=== PATIENT | male | born 1945 | race Caucasian/White ===

== ENCOUNTER 2018-05-02 16:53 | Inpatient (IN) ==
[2018-05-02] MEDS ORDERED: SODIUM CHLORIDE 0.9% 250 ML IV PRN (18:04)
[2018-05-02] MEDS ORDERED: ACETAMINOPHEN 325 MG TAB PO PRN (18:09)
[2018-05-02] MEDS ORDERED: GLUCAGON FOR INJ 1 MG VIAL SQ PRN (18:43)
[2018-05-02] MEDS ORDERED: GLUCOSE 10 TABS/TUBE PO PRN (18:43)
[2018-05-02] MEDS ORDERED: DEXTROSE 50% 50 ML SYRINGE IV PRN (18:43)
[2018-05-02] MEDS ORDERED: CARBOHYDRATES FOR HYPOGLYCEMIA PO PRN (18:43)
[2018-05-02] MEDS ORDERED: GLUCOSE 40% GEL 15 GM TUBE PO PRN (18:43)
[2018-05-02 19:09] LABS: Hematocrit (blood only) 21.6 % (42-52); Mean Corpuscular Hgb Conc 32.4 g/dL (32-36); Mean Corpuscular Volume 91.1 fL (80-100); Mean Platelet Volume 9.9 fL (7.4-10.4); Platelet Count 234 K/uL (130-400); RDW Coefficient of Variation 16.1 % (11.5-14.5); RDW Standard Deviation 53.8 fL (36.4-46.3); Red Blood Count 2.37 M/uL (4.7-6.1); White Blood Count 10.77 K/uL (4.8-10.8)
[2018-05-02 19:13] LABS: Basophils # (auto) 0.03 K/uL (0-0.2); Basophils % (auto) 0.3 %; Eosinophils # (auto) 0.14 K/uL (0-0.5); Eosinophils % (auto) 1.3 %; Immature Granulocytes # (auto) 0.01 K/uL (0.00-0.02); Immature Granulocytes % (auto) 0.1 %; Lymphocytes # (auto) 1.75 K/uL (1.2-3.4); Lymphocytes % (auto) 16.2 %; Monocytes # (auto) 0.86 K/uL (0.11-0.59); Neutrophils # (auto) 7.98 K/uL (1.4-6.5); Neutrophils % (auto) 74.1 %; RBC Morphology Unremarkable
[2018-05-02 19:18] LABS: Appearance Urine Turbid (Clear); Bacteria Urine Automated 4+ (Negative); Bilirubin Urine Negative (Negative); Color Urine Yellow; Epithelial Cell Urine Auto 20-30 /lpf (0-5); Glucose Urine UA Negative (Negative); Ketones Urine Negative (Negative); Leukocyte Esterase Urine 3+ (Negative); Nitrite Urine Positive (Negative); Protein Urine 2+ (Negative); Specific Gravity Urine 1.014 (1.000-1.030); Urobilinogen Urine Negative (Negative); WBC Urine Automated >30 /hpf (0-5)
[2018-05-02 19:21] LABS: Alanine Aminotransferase 14 U/L (12-78); Albumin Level 2.9 gm/dl (3.4-5.0); Alkaline Phosphatase 64 U/L (45-117); Aspartate Aminotransferase 9 U/L (15-37); BUN Creatinine Ratio 15.3 (10-20); Bilirubin Direct < 0.1 mg/dl (0-0.2); Bilirubin,Total 0.3 mg/dl (0.2-1); Blood Urea Nitrogen 70 mg/dl (7-18); Calcium 8.2 mg/dl (8.5-10.1); Carbon Dioxide 16 mmol/L (21-32); Chloride 112 mmol/L (98-107); Est GFR (African American) 13.6; Est GFR (Non-African American) 11.7; Ferritin 282.5 ng/ml (8-388); Glucose 163 mg/dl (70-99); Iron 23 mcg/dl (35-175); Magnesium 1.5 mg/dl (1.8-2.4); Phosphorus 4.8 mg/dl (2.5-4.9); Potassium 4.5 mmol/L (3.5-5.1); Sodium 136 mmol/L (136-145); Total Protein 7.2 gm/dl (6.4-8.2); Transferrin 166 mg/dl (200-360); Transferrin Percent Saturation 10 % (20-50)
[2018-05-02] MEDS ORDERED: PATIENT'S HEIGHT AND/OR WEIGHT NEEDED SCH (19:30)
[2018-05-02] MEDS ORDERED: PATIENT'S ALLERGY INFO NEEDS ENTERED SCH (19:30)
--- NOTE | 2018-05-02 19:34 | Ultrasound Report ---
US renal/blad retro comp HISTORY: Pain. Renal insufficiency. BEBE on CKD COMPARISON: None. FINDINGS: Right kidney: Maximum dimension 10.5 cm. No evidence for hydronephrosis. Normal corticomedullary diff erentiation and cortical thickness. Left kidney: Maximum dimension 11.2 cm. No evidence for hydronephrosis. 3 cm upper pole cyst. Normal corticomedullary differentiation and cortical thickness. Bladder: No bladder wall thickening. The bilateral ureteral jets were identified. IMPRESSION: 3 cm upper pole left renal cyst. Otherwise normal study. The above report was generated using voice recognition software. It may contain grammatical, syntax or spelling errors. Electronically signed by: Jose De Jesus Traylor M.D. 05/02/2018 7:32 PM
[2018-05-02 19:36] LABS: Creatinine Urine Random 61.4 mg/dl; Total Protein Urine Random 191.3 mg/dl (0-11.9)
[2018-05-02 21:15] LABS: INR 1.1 (0.9-1.1); Partial Thromboplastin Ratio 1.1; Partial Thromboplastin Time 27.5 Seconds (21.0-31.0)
--- NOTE | 2018-05-02 21:28 | History & Physical Report ---
Date of Service May 02, 2018 Assessment & Plan (1) CKD (chronic kidney disease): 72yo male with HTN, DM presenting with worsening renal function and anemia. 1. CKD - patient with advanced CKD stage IIIB/4 most likely secondary to underlying DM and HTN. He had an initial evaluation by Nephrology today and was found to have acute worsening of his BUN and Cr. Patient overall feels well with no acute complaints. Ddx to include pre-renal vs intrinsic renal disease vs progression of disease vs obstructive. K=4.5, no EKG changes. HCO3= 16 -Admit to medical floor -Obtain CBC, BMP, UA with urine protein:creatinine -Urine eosinophils -Obtain renal ultrasound -Nephrology consultation - appreciate assistance with this case -Avoid nephrotoxic medications -Renal dosing where appropriate -Start NaHCO3 650mg po TID -Daily BMP 2. Anemia - normochromic, normocytic anemia. Hg=7. Patient denies acute blood loss, bruising or bleeding. ?GI losses vs AOCD in setting of renal dysfunction -Check iron studies -Check LFTs -Check peripheral smear -Check FOBT -Type and Cross 2u PRBCs -Transfuse for Hg < 8 or active bleed -Patient will need GI workup in the future 3. DM - patient reports diet controlled DM -Insulin 8u BID -Sliding scale, 30:9 -Check AIC 4. HTN - patient was previously on Coreg 12.5mg po BID but reports that he hasn 't been taking it. Blood pressure elevated at 167/78 -Continue to monitor blood pressure. If it remains elevated will initiate antihypertensives 5. Seizures - remote history of seizures, none recently 6. F/E/N - Transfuse PRBCs as above. Monitor electrolytes and replete as needed. Start PO magnesium. DM/Renal diet as tolerated 7. Ppx - Heparin for DVT ppx 8. Code - DNR per discussion with patient 9. Dispo - Admit History of Present Illness Chief Complaint: BEBE on CKD Anemia Primary Care Provider: NO PCP Mr. Delaney is a pleasant 72yo male who was sent for direct admission by Nephrology for laboratory abnormalities. 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 He was evaluated in the Nephrology clinic today. His baseline Cr has been 2.2 - 2.5 and was found to be 5 today. Baseline Hg of 9.9 which was found to be 5.8 today. The patient was ordered 2u PRBCs by his PCP, however, patient did not complete transfusion. He was sent for direct admission to [facility]. Overall, patient with no complaints. He denies fevers, chills, nausea, vomiing , diarrhea or constipation. He denies CP, palpitations, dizziness or syncope. Denies melena, hematochezia or hematuria. He states that his BMs and UOP are normal. He has had progressive BELCHER over thee past 2 months. Allergies Allergy/AdvReac Type Severity Reaction Status Date / Time No Known Allergies Allergy Unverified 05/02/18 21:23 Home Medications Home Medications Medication Instructions Recorded Confirmed Type Phenytoin Sodium (Dilantin Unknown BID #0 10/18/08 History Dose) Sulfa/Trimethoprim (Bactrim Ds 1 tab PO BID 14 Days #0 10/18/08 Rx 800MG/160MG) Tamsulosin Hcl (Flomax *) 0.4 mg PO DAILY 14 Days #0 10/18/08 Rx Past Med/Surg History Medical History CHF (congestive heart failure) CKD (chronic kidney disease) Diabetes Hypertension Seizures Surgical History S/P cataract extraction Family History Other Diabetes Stroke Social History Current Living Situation: Family Other Information That Helps Us Care for You: No Feels Safe at Home: Yes Safety Concerns: Feels Safe At This Time Smoking Status: Former smoker Do You Dip or Chew Tobacco: No Second Hand Exposure: No Tobacco Cessation Education Requested by Patient: No Hx Alcohol Use: No Hx Substance Use: No Beliefs That Will Affect Care: None Preferred Language: Zambian Communication Ability: Effective Configuration Management Specialist Required: No Review of Systems All systems reviewed & are unremarkable except as noted in HPI & below Physical Exam 2 Vital Signs (Past 24 Hours): Last Vital Signs Temp 37.3 C 05/02/18 20:40 Pulse 90 05/02/18 20:40 Resp 20 05/02/18 20:40 BP 137/77 05/02/18 20:40 Pulse Ox 99 05/02/18 20:40 Physical Exam: General: patient resting comfortably, NAD, non-toxic in appearance, AA&O x 4 Skin: warm, dry, intact, no rashes or lesions HEENT: NC/AT, PERRL, EOMI, anicteric sclera, conjunctiva without injection, external ear normal to inspection and nontender, nares patent, moist mucus membranes, dentition intact, no oropharyngeal lesions, neck supple, trachea midline, no LAD, no thyromegaly, no JVD Heart: +S1/S2, regular, no m/r/g Lungs: equal air entry bilaterally, no rales/rhonchi/wheezes Abd: +BS, soft, NT/ND, no masses/organomegaly/ascites Ext: warm, 2+ pulses in UE/LE bilaterally, no clubbing/cyanosis or edema Neuro: nonfocal, patient AA&O x 4, speech intact, no facial droop, moving all extremities on command with equal strength 5/5 Results & Data Laboratory Results Lab Results 05/02/18 05/02/18 05/02/18 Range/Units 18:24 18:24 18:24 WBC 10.77 (4.8-10.8) K/uL RBC 2.37 L (4.7-6.1) M/uL Hgb 7.0 L (14.0-18.0) g/dL Hct 21.6 L (42-52) % MCV 91.1 (80-100) fL MCH 29.5 (25-34) pg MCHC 32.4 (32-36) g/dL RDW Std Deviation 53.8 H (36.4-46.3) fL RDW Coeff of Bart 16.1 H (11.5-14.5) % Plt Count 234 (130-400) K/uL MPV 9.9 (7.4-10.4) fL Immature Gran % (Auto) 0.1 % Neut % (Auto) 74.1 % Lymph % (Auto) 16.2 % [place] % (Auto) 8.0 % Eos % (Auto) 1.3 % Baso % (Auto) 0.3 % Immature Gran # (Auto) 0.01 (0.00-0.02) K/uL Neut # (Auto) 7.98 H (1.4-6.5) K/uL Lymph # (Auto) 1.75 (1.2-3.4) K/uL [place] # (Auto) 0.86 H (0.11-0.59) K/uL Eos # (Auto) 0.14 (0-0.5) K/uL Baso # (Auto) 0.03 (0-0.2) K/uL RBC Morphology Unremarkable PT (9.0-12.0) Seconds INR (0.9-1.1) APTT (21.0-31.0) Seconds PTT Ratio Sodium 136 (136-145) mmol/L Potassium 4.5 (3.5-5.1) mmol/L Chloride 112 H (98-107) mmol/L Carbon Dioxide 16 L (21-32) mmol/L Anion Gap 8.0 (3-11) BUN 70 H (7-18) mg/dl Creatinine 4.68 H* (0.6-1.4) mg/dl Est Cr Clr Drug Dosing Not Reportable Est GFR ( Amer) 13.6 Est GFR (Non-Af Amer) 11.7 BUN/Creatinine Ratio 15.3 (10-20) Glucose 163 H (70-99) mg/dl POC Glucose (70-99) Calcium 8.2 L (8.5-10.1) mg/dl Phosphorus 4.8 (2.5-4.9) mg/dl Magnesium 1.5 L (1.8-2.4) mg/dl Iron 23 L (35-175) mcg/dl TIBC 209 L (250-450) mcg/dl Transferrin 166 L (200-360) mg/dl Transferrin % Sat 10 L (20-50) % Ferritin 282.5 (8-388) ng/ml Total Bilirubin 0.3 (0.2-1) mg/dl Direct Bilirubin < 0.1 (0-0.2) mg/dl AST 9 L (15-37) U/L ALT 14 (12-78) U/L Alkaline Phosphatase 64 (45-117) U/L Total Protein 7.2 (6.4-8.2) gm/dl Albumin 2.9 L (3.4-5.0) gm/dl Urine Color Urine Appearance (Clear) Urine pH (4.5-7.5) Ur Specific [place] (1.000-1.030) Urine Protein (Negative) Urine Glucose (UA) (Negative) Urine Ketones (Negative) Urine Blood (Negative) Urine Nitrite (Negative) Urine Bilirubin (Negative) Urine Urobilinogen (Negative) Ur Leukocyte Esterase (Negative) Urine WBC (Auto) (0-5) /hpf Urine RBC (Auto) (0-4) /hpf U Hyaline Cast (Auto) (0-5) /lpf U Epithel Cells (Auto) (0-5) /lpf Urine Bacteria (Auto) (Negative) Ur Random Creatinine mg/dl U Random Total Protein (0-11.9) mg/dl Protein/Creatinin Ratio (0-0.2) Blood Type A Positive Blood Type Recheck Antibody Screen NEGATIVE Crossmatch See Detail 05/02/18 05/02/18 05/02/18 Range/Units 18:24 18:48 18:48 WBC (4.8-10.8) K/uL RBC (4.7-6.1) M/uL Hgb (14.0-18.0) g/dL Hct (42-52) % MCV (80-100) fL MCH (25-34) pg MCHC (32-36) g/dL RDW Std Deviation (36.4-46.3) fL RDW Coeff of Bart (11.5-14.5) % Plt Count (130-400) K/uL MPV (7.4-10.4) fL Immature Gran % (Auto) % Neut % (Auto) % Lymph % (Auto) % [place] % (Auto) % Eos % (Auto) % Baso % (Auto) % Immature Gran # (Auto) (0.00-0.02) K/uL Neut # (Auto) (1.4-6.5) K/uL Lymph # (Auto) (1.2-3.4) K/uL [place] # (Auto) (0.11-0.59) K/uL Eos # (Auto) (0-0.5) K/uL Baso # (Auto) (0-0.2) K/uL RBC Morphology PT 11.0 (9.0-12.0) Seconds INR 1.1 (0.9-1.1) APTT 27.5 (21.0-31.0) Seconds PTT Ratio 1.1 Sodium (136-145) mmol/L Potassium (3.5-5.1) mmol/L Chloride (98-107) mmol/L Carbon Dioxide (21-32) mmol/L Anion Gap (3-11) BUN (7-18) mg/dl Creatinine (0.6-1.4) mg/dl Est Cr Clr Drug Dosing Est GFR ( Amer) Est GFR (Non-Af Amer) BUN/Creatinine Ratio (10-20) Glucose (70-99) mg/dl POC Glucose (70-99) Calcium (8.5-10.1) mg/dl Phosphorus (2.5-4.9) mg/dl Magnesium (1.8-2.4) mg/dl Iron (35-175) mcg/dl TIBC (250-450) mcg/dl Transferrin (200-360) mg/dl Transferrin % Sat (20-50) % Ferritin (8-388) ng/ml Total Bilirubin (0.2-1) mg/dl Direct Bilirubin (0-0.2) mg/dl AST (15-37) U/L ALT (12-78) U/L Alkaline Phosphatase (45-117) U/L Total Protein (6.4-8.2) gm/dl Albumin (3.4-5.0) gm/dl Urine Color Yellow Urine Appearance Turbid H (Clear) Urine pH 5.0 (4.5-7.5) Ur Specific [place] 1.014 (1.000-1.030) Urine Protein 2+ H (Negative) Urine Glucose (UA) Negative (Negative) Urine Ketones Negative (Negative) Urine Blood 2+ H (Negative) Urine Nitrite Positive H (Negative) Urine Bilirubin Negative (Negative) Urine Urobilinogen Negative (Negative) Ur Leukocyte Esterase 3+ H (Negative) Urine WBC (Auto) >30 H (0-5) /hpf Urine RBC (Auto) 10-30 H (0-4) /hpf U Hyaline Cast (Auto) 1-5 (0-5) /lpf U Epithel Cells (Auto) 20-30 H (0-5) /lpf Urine Bacteria (Auto) 4+ H (Negative) Ur Random Creatinine 61.4 mg/dl U Random Total Protein 191.3 H (0-11.9) mg/dl Protein/Creatinin Ratio 3.1 H (0-0.2) Blood Type Blood Type Recheck Antibody Screen Crossmatch 05/02/18 05/02/18 Range/Units 19:40 20:20 WBC (4.8-10.8) K/uL RBC (4.7-6.1) M/uL Hgb (14.0-18.0) g/dL Hct (42-52) % MCV (80-100) fL MCH (25-34) pg MCHC (32-36) g/dL RDW Std Deviation (36.4-46.3) fL RDW Coeff of Bart (11.5-14.5) % Plt Count (130-400) K/uL MPV (7.4-10.4) fL Immature Gran % (Auto) % Neut % (Auto) % Lymph % (Auto) % [place] % (Auto) % Eos % (Auto) % Baso % (Auto) % Immature Gran # (Auto) (0.00-0.02) K/uL Neut # (Auto) (1.4-6.5) K/uL Lymph # (Auto) (1.2-3.4) K/uL [place] # (Auto) (0.11-0.59) K/uL Eos # (Auto) (0-0.5) K/uL Baso # (Auto) (0-0.2) K/uL RBC Morphology PT (9.0-12.0) Seconds INR (0.9-1.1) APTT (21.0-31.0) Seconds PTT Ratio Sodium (136-145) mmol/L Potassium (3.5-5.1) mmol/L Chloride (98-107) mmol/L Carbon Dioxide (21-32) mmol/L Anion Gap (3-11) BUN (7-18) mg/dl Creatinine (0.6-1.4) mg/dl Est Cr Clr Drug Dosing Est GFR ( Amer) Est GFR (Non-Af Amer) BUN/Creatinine Ratio (10-20) Glucose (70-99) mg/dl POC Glucose 218 H (70-99) Calcium (8.5-10.1) mg/dl Phosphorus (2.5-4.9) mg/dl Magnesium (1.8-2.4) mg/dl Iron (35-175) mcg/dl TIBC (250-450) mcg/dl Transferrin (200-360) mg/dl Transferrin % Sat (20-50) % Ferritin (8-388) ng/ml Total Bilirubin (0.2-1) mg/dl Direct Bilirubin (0-0.2) mg/dl AST (15-37) U/L ALT (12-78) U/L Alkaline Phosphatase (45-117) U/L Total Protein (6.4-8.2) gm/dl Albumin (3.4-5.0) gm/dl Urine Color Urine Appearance (Clear) Urine pH (4.5-7.5) Ur Specific [place] (1.000-1.030) Urine Protein (Negative) Urine Glucose (UA) (Negative) Urine Ketones (Negative) Urine Blood (Negative) Urine Nitrite (Negative) Urine Bilirubin (Negative) Urine Urobilinogen (Negative) Ur Leukocyte Esterase (Negative) Urine WBC (Auto) (0-5) /hpf Urine RBC (Auto) (0-4) /hpf U Hyaline Cast (Auto) (0-5) /lpf U Epithel Cells (Auto) (0-5) /lpf Urine Bacteria (Auto) (Negative) Ur Random Creatinine mg/dl U Random Total Protein (0-11.9) mg/dl Protein/Creatinin Ratio (0-0.2) Blood Type Blood Type Recheck A Positive Antibody Screen Crossmatch Diagnostic Findings US renal/blad retro comp HISTORY: Pain. Renal insufficiency. BEBE on CKD COMPARISON: None. FINDINGS: Right kidney: Maximum dimension 10.5 cm. No evidence for hydronephrosis. Normal corticomedullary differentiation and cortical thickness. Left kidney: Maximum dimension 11.2 cm. No evidence for hydronephrosis. 3 cm upper pole cyst. Normal corticomedullary differentiation and cortical thickness. Bladder: No bladder wall thickening. The bilateral ureteral jets were identified. IMPRESSION: 3 cm upper pole left renal cyst. Otherwise normal study. The above report was generated using voice recognition software. It may contain grammatical, syntax or spelling errors. Electronically signed by: Jose De Jesus Traylor M.D. 05/02/2018 7:32 PM Dictated: 05/02/181931 Transcribed: 05/02/181931 ECG Additional Comments: NSR at 95bpm, LAFB, [id number], no ischemia Code Status & VTE Plan Code Status DNR Critical Care Time Critical Care Time: No
[2018-05-02] MEDS: INSULIN GLARGINE SOLOSTAR 100 UNITS/ML 3 ML PEN SC SCH (22:17)
[2018-05-02] MEDS: HEPARIN SOD 5,000 UNIT/0.5 ML VIAL SQ SCH (22:17)
[2018-05-03 06:06] LABS: Basophils # (auto) 0.02 K/uL (0-0.2); Basophils % (auto) 0.2 %; Eosinophils # (auto) 0.13 K/uL (0-0.5); Eosinophils % (auto) 1.4 %; Hematocrit (blood only) 22.1 % (42-52); Hemoglobin 7.1 g/dL (14.0-18.0); Immature Granulocytes # (auto) 0.03 K/uL (0.00-0.02); Immature Granulocytes % (auto) 0.3 %; Lymphocytes # (auto) 2.15 K/uL (1.2-3.4); Lymphocytes % (auto) 23.5 %; Mean Corpuscular Hgb Conc 32.1 g/dL (32-36); Mean Corpuscular Volume 90.9 fL (80-100); Mean Platelet Volume 9.9 fL (7.4-10.4); Monocytes # (auto) 0.86 K/uL (0.11-0.59); Monocytes % (auto) 9.4 %; Neutrophils # (auto) 5.96 K/uL (1.4-6.5); Neutrophils % (auto) 65.2 %; Platelet Count 217 K/uL (130-400); RDW Coefficient of Variation 15.7 % (11.5-14.5); RDW Standard Deviation 52.8 fL (36.4-46.3); Red Blood Count 2.43 M/uL (4.7-6.1); White Blood Count 9.15 K/uL (4.8-10.8)
[2018-05-03] MEDS: HEPARIN SOD 5,000 UNIT/0.5 ML VIAL SQ SCH ×2 (06:16→14:24)
[2018-05-03 06:31] LABS: Tear Drop Cells 1+
[2018-05-03 06:52] LABS: BUN Creatinine Ratio 15.2 (10-20); Calcium 8.1 mg/dl (8.5-10.1); Creatinine Clr Calc Pharmacy 20.1 ml/min; Est GFR (African American) 13.2; Est GFR (Non-African American) 11.4
[2018-05-03 07:07] LABS: Estimated Average Glucose 177 mg/dl
[2018-05-03] MEDS ORDERED: SODIUM BICARBONATE 650 MG TAB PO SCH (09:00)
[2018-05-03] MEDS: CARVEDILOL 12.5 MG TAB PO SCH ×2 (09:53→21:25)
[2018-05-03] MEDS: MAGNESIUM OXIDE 400 MG TAB PO SCH ×2 (09:53→21:25)
[2018-05-03] MEDS: INSULIN GLARGINE SOLOSTAR 100 UNITS/ML 3 ML PEN SC SCH ×2 (09:54→21:27)
[2018-05-03] MEDS: INSULIN ASPART 100 UNITS/ML 3 ML PEN SC SCH ×4 (09:55→21:28)
--- NOTE | 2018-05-03 10:52 | Nephrology Consultation ---
Date of Consultation May 03, 2018 Assessment & Plan (1) CKD (chronic kidney disease): -- Start NaHCO3 therapy to correct metabolic acidosis. Recommend reducing dose to NaHCO3 650 mg po BID -- Renal US report reviewed today: No obstruction. Normal sized kidneys. One simple cyst reported -- Urinalysis reveals microscopic hematuria and high grade proteinuria. Will order repeat urine microscopy as patient had epithelial cells and bacteriuria. Proteinuria is likely related to underlying DM and obesity. Will order serum free light chains w/ next lab draw -- Indications/benefits/risks & alternatives to dialysis (including hospice) discussed in detail w/ the patient and his family this morning. Mr. Delaney indicated that he needs time to consider dialysis. He wishes to discuss this with his family. He may not pursue dialysis due to his [facility] jodie. -- If discharge is anticipated please have patient follow up w/ Dr Francis within the next 7 days (2) Anemia: -- Recommend transfusion to maintain Hgb > 8.0 -- Patient has iron deficiency. Recommend IV Venofer 200 mg daily x 5 days -- Recommend FOBT if not already completed (3) H/O CHF: -- Recommend Echocardiogram to assess LVEF and PA pressure History of Present Illness Reason for Consultation: Evaluation of progressive CKD Attending Physician: Chao Medrano History of Present Illness Mr. Delaney is a 72 year old [facility] male who is seen at the request of Dr. Medrano for evaluation of progressive CKD. Medical records in the EMR were reviewed today and are summarized as follows: Mr. Delaney has had relatively few medical evaluations due to his [facility] jodie. He does have a known h/o CHF, HTN, diet controlled AODM and CKD w/ baseline creatinine ~ 2.5 (2017). His chronic medical regimen has consisted of Carvedilol 12.5 mg BID and Furosemide 40 mg daily. Mr. Delaney was referred to Nephrology yesterday for evaluation. Laboratory studies revealed creatinine 4.6, bicarbonate 14 and Hgb 5.8. Patient was admitted directly to the hospital for blood transfusion and further Nephrology evaluation. Currently Mr. Delaney states that he feels well. He denies fever, dyspnea, angina or uremic symptoms. He was transfused one unit PRBC yesterday and is anxious to return home. Allergies Allergy/AdvReac Type Severity Reaction Status Date / Time No Known Allergies Allergy Unverified 05/02/18 21:23 Home Medications Home Medications Medication Instructions Recorded Confirmed Type Phenytoin Sodium (Dilantin Unknown BID #0 10/18/08 History Dose) Sulfa/Trimethoprim (Bactrim Ds 1 tab PO BID 14 Days #0 10/18/08 Rx 800MG/160MG) Tamsulosin Hcl (Flomax *) 0.4 mg PO DAILY 14 Days #0 10/18/08 Rx Patient History Medical History CHF (congestive heart failure) CKD (chronic kidney disease) Diabetes Hypertension Seizures Surgical History S/P cataract extraction Family History Other Diabetes Stroke Social History Current Living Situation: Family Other Information That Helps Us Care for You: No Feels Safe at Home: Yes Safety Concerns: Feels Safe At This Time Smoking Status: Former smoker Do You Dip or Chew Tobacco: No Second Hand Exposure: No Tobacco Cessation Education Requested by Patient: No Hx Alcohol Use: No Hx Substance Use: No Beliefs That Will Affect Care: None Preferred Language: Norwegian Communication Ability: Effective Color Repairer Required: No Review of Systems Constitutional: no fever Respiratory: no dyspnea Cardiovascular: no chest pain Gastrointestinal: no abdominal pain Physical Exam 2 Vital Signs (Past 24 Hours): Last Vital Signs Temp 36.6 C 05/03/18 10:30 Pulse 81 05/03/18 10:30 Resp 18 05/03/18 10:30 BP 138/73 05/03/18 10:30 Pulse Ox 99 05/03/18 10:30 Constitutional: + obese Eyes: PERRL, conjunctivae normal, anicteric sclerae Neck: trachea midline, no thyromegaly Respiratory: normal respiratory effort, lungs clear to auscultation Cardiovascular: Rate/Rhythm: regular rate and regular rhythm Extremities: + edema (2+ pretibial pitting edema) Gastrointestinal (Abdomen): normal bowel sounds, soft, nontender, no hepatosplenomegaly Results & Data Laboratory Results Laboratory Tests 05/02/18 05/02/18 05/02/18 18:24 18:48 18:48 WBC Hgb Hct Plt Count Sodium Potassium Chloride Carbon Dioxide BUN Creatinine Glucose Calcium Transferrin % Sat 10 L Albumin 2.9 L Urine Color Yellow Urine Appearance Turbid H Urine pH 5.0 Ur Specific [place] 1.014 Urine Protein 2+ H Urine Glucose (UA) Negative Urine Blood 2+ H Ur Leukocyte Esterase 3+ H Urine WBC (Auto) >30 H Urine RBC (Auto) 10-30 H U Epithel Cells (Auto) 20-30 H Urine Bacteria (Auto) 4+ H Ur Random Creatinine 61.4 U Random Total Protein 191.3 H Protein/Creatinin Ratio 3.1 H 05/03/18 05/03/18 05:45 05:45 WBC 9.15 Hgb 7.1 L Hct 22.1 L Plt Count 217 Sodium 136 Potassium 4.0 Chloride 111 H Carbon Dioxide 15 L BUN 73 H Creatinine 4.79 H* Glucose 175 H Calcium 8.1 L Transferrin % Sat Albumin Urine Color Urine Appearance Urine pH Ur Specific [place] Urine Protein Urine Glucose (UA) Urine Blood Ur Leukocyte Esterase Urine WBC (Auto) Urine RBC (Auto) U Epithel Cells (Auto) Urine Bacteria (Auto) Ur Random Creatinine U Random Total Protein Protein/Creatinin Ratio Diagnostic Findings RENAL ULTRASOUND 05/02/18: Right kidney: Maximum dimension 10.5 cm. No evidence for hydronephrosis. Normal corticomedullary differentiation and cortical thickness. Left kidney: Maximum dimension 11.2 cm. No evidence for hydronephrosis. 3 cm upper pole cyst. Normal corticomedullary differentiation and cortical thickness. Bladder: No bladder wall thickening. The bilateral ureteral jets were identified.
[2018-05-03 14:08] LABS: Hematocrit (blood only) 25.3 % (42-52); Hemoglobin 8.2 g/dL (14.0-18.0)
[2018-05-03 14:38] LABS: BUN Creatinine Ratio 15.8 (10-20); Calcium 8.3 mg/dl (8.5-10.1); Creatinine Clr Calc Pharmacy 20.9 ml/min; Est GFR (African American) 13.9
[2018-05-03] MEDS ORDERED: PANTOprazole 40 MG in DEXTROSE 5% 100 ML IV SCH (16:30)
[2018-05-03] MEDS ORDERED: IRON SUCROSE (VENOFER) 100 MG/5 ML VIAL IV SCH (16:30)
--- NOTE | 2018-05-03 16:35 | Hospitalist Progress Note ---
Date of Service May 03, 2018 Assessment & Plan (1) Acute kidney injury: - Presented with BEBE, creatinine increased to ~5; remains elevated today, was 4.60. - Baseline creatinine was ~2.0-2.5; BEBE likely related to progression of CKD. - Nephrology consulted, appreciate input. - Renal US was negative, one simple cyst reported. - U/a +microscopic hematuria and high grade proteinuria (likely related to DM and obesity). - Serum free light chains pending with next lab draw. - Discussed dialysis with patient -- he does not want HD in future if necessary. (2) Chronic kidney disease, stage IV (severe): - Related to underlying DM and HTN. - Renally dose all meds; nephro consulted. - Pt. does not want HD; was requesting to leave today but did agree to stay until 05/03/18. (3) Metabolic acidosis: - Bicarb level improved to 17, Chl 111. - Monitor BMP q12hr. - Continue sodium bicarb 650 mg BID. (4) Urinary tract infection: - UC positive for gram negative bacilli. - Will start Keflex for empiric coverage. (5) GI bleed: - Presented with significant anemia at outpt appt, hgb ~5.8; received 1 unit pRBC with no improvement (7.0-> 7.1). - Transfused 2nd unit pRBC this morning, hgb now 8.2. - FOBT was positive. - Will start Protonix PO BID -- pt. will likely be discharged on 05/04/18. - Consider GI consult -- pt. is requesting to leave in the morning, therefore he may not agree to procedure. (6) Anemia of chronic disease: - Iron studies are consistent with anemia of chronic disease; pt. likely has acute anemia related to GI bleed as well. - Transfuse for hgb <8 in setting of CKD. - Start Venofer 200 mg IV daily for 5 day course. - Monitor CBC q12hr. (7) Scrotal lesion: - Large ulcer noted in scrotal area; pt. reports area bleeds at times. - Will consult wound care. (8) Diabetes mellitus, type II: - Continue Lantus 8 units BID with SSI coverage. - Hemoglobin A1C was 7.8 during this admission. (9) Hypertension: - Pt. was not taking Coreg at home; has been hypertensive. - Will restart Coreg 12.5 mg PO BID. (10) History of seizures: - Not currently on medication. (11) DVT prophylaxis: - SCDs; hold Heparin in setting of acute bleed. Dispo: Telemetry; will re-evaluate labs in the morning, pt. is requesting to leave in the morning. Supervising Physician Co-Signing Physician Notes Attending Attestation & Progress note -- Pt seen/examined at bedside with ALYSSIA Garcia. Chart reviewed, care plan d/w Ms. Garcia. I agree w/ the rae components of her documentation. Before my visit with the patient he had requested to be discharged. I went to the bedside with Ms. Garcia and we discussed with him why it would be best for him to stay at least 1 additional day. He ultimately decided to stay another night. Patient reports BELCHER with minimal activity. Reports chronic drainage/wound on scrotum. VSS, no fever gen - morbidly obese neck - JVD difficult to assess heart - RRR, s1, s2 lungs - faint rales bases abd - obese, soft - left side of scrotum with large ulceration, foul drainage ext - 2-3+ edema b/l labs reviewed A/P: 1. Advancing CKD stage 4 - presumably on basis of uncontrolled T2DM and/or HTN. 2. severe symptomatic anemia - s/p several units of PRBCs. Anemia likely due to CKD, cannot exclude an acute component due to occult GI bleeding. 3. heme+ stool. 4. scrotal ulcer. 5. GNR UTI. 6. morbid obesity with BMI >50 7. volume overload state. Place on empiric abx for UTI. Place on PPI in the event heme+ stool is due to upper GI source. Serial labs. Wound consult for scrotum. Consider dose of high-dose diuretic in light of dyspnea, rales, and likely volume overload state in setting of advancing renal disease. Appreciate nephrology consultation. Chao Medrano MD Subjective Pt. was very anxious to be discharged today. He presented with progressive CKD and severe anemia in setting of anemia of chronic disease. We discussed acute medical problems with patient and his family today; the patient was agreeable to staying one more night in the hospital. He has an ulcer on his scrotum; pt. states he has bleeding from area when it rubs against surfaces. He had bleeding noted on bed pad this morning. Pt. denies h/o GI bleeding. He has SOB with very minimal exertion and LE edema. Review of Systems All systems reviewed & are unremarkable except as noted in HPI & below Constitutional: + weakness; no fever and no chills Respiratory: + dyspnea and + dyspnea on exertion; no cough Cardiovascular: + edema; no chest pain and no palpitations Gastrointestinal: no abdominal pain, no nausea and no constipation Genitourinary (Male): no difficulty urinating Integumentary: + lesions (Scrotum) Allergy / Immunological: + rash (See HPI) Physical Exam 2 Vital Signs (Past 24 Hours): Last Vital Signs Temp 37.4 C 05/03/18 15:00 Pulse 103 H 05/03/18 15:00 Resp 18 05/03/18 15:00 BP 155/83 H 05/03/18 15:00 Pulse Ox 98 05/03/18 15:00 Physical Exam: General: Obese male, in no acute distress. HEENT: NC/AT; PERRLA with EOMI; [place] conjunctiva, MMM. Neck: Supple and nontender Cardiac: RRR w/o murmurs, gallops or rubs Lungs: CTA bilaterally; No rhonchi, wheezing, or rales Abdomen: Bowel normoactive X 4; Nontender to palpation Extremities: Warm. + chronic nonpitting LE edema in both legs. Neuro: No focal weakness Skin: Chronic venous changes in bilat LE; please see Dr. Medrano's exam for scrotal lesion. Results & Data Laboratory Results 05/03/18 05/03/18 05/03/18 Range/Units 13:53 13:53 13:45 WBC (4.8-10.8) K/uL RBC (4.7-6.1) M/uL Hgb 8.2 L (14.0-18.0) g/dL Hct 25.3 L (42-52) % MCV (80-100) fL MCH (25-34) pg MCHC (32-36) g/dL RDW Std Deviation (36.4-46.3) fL RDW Coeff of Bart (11.5-14.5) % Plt Count (130-400) K/uL MPV (7.4-10.4) fL Immature Gran % (Auto) % Neut % (Auto) % Lymph % (Auto) % [place] % (Auto) % Eos % (Auto) % Baso % (Auto) % Immature Gran # (Auto) (0.00-0.02) K/uL Neut # (Auto) (1.4-6.5) K/uL Lymph # (Auto) (1.2-3.4) K/uL [place] # (Auto) (0.11-0.59) K/uL Eos # (Auto) (0-0.5) K/uL Baso # (Auto) (0-0.2) K/uL RBC Morphology Tear Drop Cells Peripher Smr Path Cons PT (9.0-12.0) Seconds INR (0.9-1.1) APTT (21.0-31.0) Seconds PTT Ratio Sodium 136 (136-145) mmol/L Potassium 4.0 (3.5-5.1) mmol/L Chloride 111 H (98-107) mmol/L Carbon Dioxide 17 L (21-32) mmol/L Anion Gap 8.0 (3-11) BUN 73 H (7-18) mg/dl Creatinine 4.60 H* (0.6-1.4) mg/dl Est Cr Clr Drug Dosing 20.9 Est GFR ( Amer) 13.9 Est GFR (Non-Af Amer) 12.0 BUN/Creatinine Ratio 15.8 (10-20) Glucose 122 H (70-99) mg/dl POC Glucose (70-99) Estimat Average Glucose mg/dl Hemoglobin A1c (4.5-5.6) % Calcium 8.3 L (8.5-10.1) mg/dl Phosphorus (2.5-4.9) mg/dl Magnesium (1.8-2.4) mg/dl Iron (35-175) mcg/dl TIBC (250-450) mcg/dl Transferrin (200-360) mg/dl Transferrin % Sat (20-50) % Ferritin (8-388) ng/ml Total Bilirubin (0.2-1) mg/dl Direct Bilirubin (0-0.2) mg/dl AST (15-37) U/L ALT (12-78) U/L Alkaline Phosphatase (45-117) U/L Total Protein (6.4-8.2) gm/dl Albumin (3.4-5.0) gm/dl Urine Color Urine Appearance (Clear) Urine pH (4.5-7.5) Ur Specific [place] (1.000-1.030) Urine Protein (Negative) Urine Glucose (UA) (Negative) Urine Ketones (Negative) Urine Blood (Negative) Urine Nitrite (Negative) Urine Bilirubin (Negative) Urine Urobilinogen (Negative) Ur Leukocyte Esterase (Negative) Urine WBC (Auto) (0-5) /hpf Urine RBC (Auto) (0-4) /hpf U Hyaline Cast (Auto) (0-5) /lpf U Epithel Cells (Auto) (0-5) /lpf Urine Bacteria (Auto) (Negative) Ur Random Creatinine mg/dl U Random Total Protein (0-11.9) mg/dl Protein/Creatinin Ratio (0-0.2) Stool Occult Bld Scrn Positive H (Negative) Blood Type Blood Type Recheck Antibody Screen Crossmatch 05/03/18 05/03/18 05/03/18 Range/Units 11:44 07:35 05:45 WBC (4.8-10.8) K/uL RBC (4.7-6.1) M/uL Hgb (14.0-18.0) g/dL Hct (42-52) % MCV (80-100) fL MCH (25-34) pg MCHC (32-36) g/dL RDW Std Deviation (36.4-46.3) fL RDW Coeff of Bart (11.5-14.5) % Plt Count (130-400) K/uL MPV (7.4-10.4) fL Immature Gran % (Auto) % Neut % (Auto) % Lymph % (Auto) % [place] % (Auto) % Eos % (Auto) % Baso % (Auto) % Immature Gran # (Auto) (0.00-0.02) K/uL Neut # (Auto) (1.4-6.5) K/uL Lymph # (Auto) (1.2-3.4) K/uL [place] # (Auto) (0.11-0.59) K/uL Eos # (Auto) (0-0.5) K/uL Baso # (Auto) (0-0.2) K/uL RBC Morphology Tear Drop Cells Peripher Smr Path Cons PT (9.0-12.0) Seconds INR (0.9-1.1) APTT (21.0-31.0) Seconds PTT Ratio Sodium 136 (136-145) mmol/L Potassium 4.0 (3.5-5.1) mmol/L Chloride 111 H (98-107) mmol/L Carbon Dioxide 15 L (21-32) mmol/L Anion Gap 10.0 (3-11) BUN 73 H (7-18) mg/dl Creatinine 4.79 H* (0.6-1.4) mg/dl Est Cr Clr Drug Dosing 20.1 Est GFR ( Amer) 13.2 Est GFR (Non-Af Amer) 11.4 BUN/Creatinine Ratio 15.2 (10-20) Glucose 175 H (70-99) mg/dl POC Glucose 91 176 H (70-99) Estimat Average Glucose mg/dl Hemoglobin A1c (4.5-5.6) % Calcium 8.1 L (8.5-10.1) mg/dl Phosphorus (2.5-4.9) mg/dl Magnesium (1.8-2.4) mg/dl Iron (35-175) mcg/dl TIBC (250-450) mcg/dl Transferrin (200-360) mg/dl Transferrin % Sat (20-50) % Ferritin (8-388) ng/ml Total Bilirubin (0.2-1) mg/dl Direct Bilirubin (0-0.2) mg/dl AST (15-37) U/L ALT (12-78) U/L Alkaline Phosphatase (45-117) U/L Total Protein (6.4-8.2) gm/dl Albumin (3.4-5.0) gm/dl Urine Color Urine Appearance (Clear) Urine pH (4.5-7.5) Ur Specific [place] (1.000-1.030) Urine Protein (Negative) Urine Glucose (UA) (Negative) Urine Ketones (Negative) Urine Blood (Negative) Urine Nitrite (Negative) Urine Bilirubin (Negative) Urine Urobilinogen (Negative) Ur Leukocyte Esterase (Negative) Urine WBC (Auto) (0-5) /hpf Urine RBC (Auto) (0-4) /hpf U Hyaline Cast (Auto) (0-5) /lpf U Epithel Cells (Auto) (0-5) /lpf Urine Bacteria (Auto) (Negative) Ur Random Creatinine mg/dl U Random Total Protein (0-11.9) mg/dl Protein/Creatinin Ratio (0-0.2) Stool Occult Bld Scrn (Negative) Blood Type Blood Type Recheck Antibody Screen Crossmatch 05/03/18 05/02/18 05/02/18 Range/Units 05:45 20:20 19:40 WBC 9.15 (4.8-10.8) K/uL RBC 2.43 L (4.7-6.1) M/uL Hgb 7.1 L (14.0-18.0) g/dL Hct 22.1 L (42-52) % MCV 90.9 (80-100) fL MCH 29.2 (25-34) pg MCHC 32.1 (32-36) g/dL RDW Std Deviation 52.8 H (36.4-46.3) fL RDW Coeff of Bart 15.7 H (11.5-14.5) % Plt Count 217 (130-400) K/uL MPV 9.9 (7.4-10.4) fL Immature Gran % (Auto) 0.3 % Neut % (Auto) 65.2 % Lymph % (Auto) 23.5 % [place] % (Auto) 9.4 % Eos % (Auto) 1.4 % Baso % (Auto) 0.2 % Immature Gran # (Auto) 0.03 H (0.00-0.02) K/uL Neut # (Auto) 5.96 (1.4-6.5) K/uL Lymph # (Auto) 2.15 (1.2-3.4) K/uL [place] # (Auto) 0.86 H (0.11-0.59) K/uL Eos # (Auto) 0.13 (0-0.5) K/uL Baso # (Auto) 0.02 (0-0.2) K/uL RBC Morphology Tear Drop Cells 1+ Peripher Smr Path Cons PT (9.0-12.0) Seconds INR (0.9-1.1) APTT (21.0-31.0) Seconds PTT Ratio Sodium (136-145) mmol/L Potassium (3.5-5.1) mmol/L Chloride (98-107) mmol/L Carbon Dioxide (21-32) mmol/L Anion Gap (3-11) BUN (7-18) mg/dl Creatinine (0.6-1.4) mg/dl Est Cr Clr Drug Dosing Est GFR ( Amer) Est GFR (Non-Af Amer) BUN/Creatinine Ratio (10-20) Glucose (70-99) mg/dl POC Glucose 218 H (70-99) Estimat Average Glucose mg/dl Hemoglobin A1c (4.5-5.6) % Calcium (8.5-10.1) mg/dl Phosphorus (2.5-4.9) mg/dl Magnesium (1.8-2.4) mg/dl Iron (35-175) mcg/dl TIBC (250-450) mcg/dl Transferrin (200-360) mg/dl Transferrin % Sat (20-50) % Ferritin (8-388) ng/ml Total Bilirubin (0.2-1) mg/dl Direct Bilirubin (0-0.2) mg/dl AST (15-37) U/L ALT (12-78) U/L Alkaline Phosphatase (45-117) U/L Total Protein (6.4-8.2) gm/dl Albumin (3.4-5.0) gm/dl Urine Color Urine Appearance (Clear) Urine pH (4.5-7.5) Ur Specific [place] (1.000-1.030) Urine Protein (Negative) Urine Glucose (UA) (Negative) Urine Ketones (Negative) Urine Blood (Negative) Urine Nitrite (Negative) Urine Bilirubin (Negative) Urine Urobilinogen (Negative) Ur Leukocyte Esterase (Negative) Urine WBC (Auto) (0-5) /hpf Urine RBC (Auto) (0-4) /hpf U Hyaline Cast (Auto) (0-5) /lpf U Epithel Cells (Auto) (0-5) /lpf Urine Bacteria (Auto) (Negative) Ur Random Creatinine mg/dl U Random Total Protein (0-11.9) mg/dl Protein/Creatinin Ratio (0-0.2) Stool Occult Bld Scrn (Negative) Blood Type Blood Type Recheck A Positive Antibody Screen Crossmatch 05/02/18 05/02/18 05/02/18 Range/Units 18:48 18:48 18:24 WBC (4.8-10.8) K/uL RBC (4.7-6.1) M/uL Hgb (14.0-18.0) g/dL Hct (42-52) % MCV (80-100) fL MCH (25-34) pg MCHC (32-36) g/dL RDW Std Deviation (36.4-46.3) fL RDW Coeff of Bart (11.5-14.5) % Plt Count (130-400) K/uL MPV (7.4-10.4) fL Immature Gran % (Auto) % Neut % (Auto) % Lymph % (Auto) % [place] % (Auto) % Eos % (Auto) % Baso % (Auto) % Immature Gran # (Auto) (0.00-0.02) K/uL Neut # (Auto) (1.4-6.5) K/uL Lymph # (Auto) (1.2-3.4) K/uL [place] # (Auto) (0.11-0.59) K/uL Eos # (Auto) (0-0.5) K/uL Baso # (Auto) (0-0.2) K/uL RBC Morphology Tear Drop Cells Peripher Smr Path Cons PT 11.0 (9.0-12.0) Seconds INR 1.1 (0.9-1.1) APTT 27.5 (21.0-31.0) Seconds PTT Ratio 1.1 Sodium (136-145) mmol/L Potassium (3.5-5.1) mmol/L Chloride (98-107) mmol/L Carbon Dioxide (21-32) mmol/L Anion Gap (3-11) BUN (7-18) mg/dl Creatinine (0.6-1.4) mg/dl Est Cr Clr Drug Dosing Est GFR ( Amer) Est GFR (Non-Af Amer) BUN/Creatinine Ratio (10-20) Glucose (70-99) mg/dl POC Glucose (70-99) Estimat Average Glucose mg/dl Hemoglobin A1c (4.5-5.6) % Calcium (8.5-10.1) mg/dl Phosphorus (2.5-4.9) mg/dl Magnesium (1.8-2.4) mg/dl Iron (35-175) mcg/dl TIBC (250-450) mcg/dl Transferrin (200-360) mg/dl Transferrin % Sat (20-50) % Ferritin (8-388) ng/ml Total Bilirubin (0.2-1) mg/dl Direct Bilirubin (0-0.2) mg/dl AST (15-37) U/L ALT (12-78) U/L Alkaline Phosphatase (45-117) U/L Total Protein (6.4-8.2) gm/dl Albumin (3.4-5.0) gm/dl Urine Color Yellow Urine Appearance Turbid H (Clear) Urine pH 5.0 (4.5-7.5) Ur Specific [place] 1.014 (1.000-1.030) Urine Protein 2+ H (Negative) Urine Glucose (UA) Negative (Negative) Urine Ketones Negative (Negative) Urine Blood 2+ H (Negative) Urine Nitrite Positive H (Negative) Urine Bilirubin Negative (Negative) Urine Urobilinogen Negative (Negative) Ur Leukocyte Esterase 3+ H (Negative) Urine WBC (Auto) >30 H (0-5) /hpf Urine RBC (Auto) 10-30 H (0-4) /hpf U Hyaline Cast (Auto) 1-5 (0-5) /lpf U Epithel Cells (Auto) 20-30 H (0-5) /lpf Urine Bacteria (Auto) 4+ H (Negative) Ur Random Creatinine 61.4 mg/dl U Random Total Protein 191.3 H (0-11.9) mg/dl Protein/Creatinin Ratio 3.1 H (0-0.2) Stool Occult Bld Scrn (Negative) Blood Type Blood Type Recheck Antibody Screen Crossmatch 05/02/18 05/02/18 05/02/18 Range/Units 18:24 18:24 18:24 WBC (4.8-10.8) K/uL RBC (4.7-6.1) M/uL Hgb (14.0-18.0) g/dL Hct (42-52) % MCV (80-100) fL MCH (25-34) pg MCHC (32-36) g/dL RDW Std Deviation (36.4-46.3) fL RDW Coeff of Bart (11.5-14.5) % Plt Count (130-400) K/uL MPV (7.4-10.4) fL Immature Gran % (Auto) % Neut % (Auto) % Lymph % (Auto) % [place] % (Auto) % Eos % (Auto) % Baso % (Auto) % Immature Gran # (Auto) (0.00-0.02) K/uL Neut # (Auto) (1.4-6.5) K/uL Lymph # (Auto) (1.2-3.4) K/uL [place] # (Auto) (0.11-0.59) K/uL Eos # (Auto) (0-0.5) K/uL Baso # (Auto) (0-0.2) K/uL RBC Morphology Tear Drop Cells Peripher Smr Path Cons PT (9.0-12.0) Seconds INR (0.9-1.1) APTT (21.0-31.0) Seconds PTT Ratio Sodium 136 (136-145) mmol/L Potassium 4.5 (3.5-5.1) mmol/L Chloride 112 H (98-107) mmol/L Carbon Dioxide 16 L (21-32) mmol/L Anion Gap 8.0 (3-11) BUN 70 H (7-18) mg/dl Creatinine 4.68 H* (0.6-1.4) mg/dl Est Cr Clr Drug Dosing Not Reportable Est GFR ( Amer) 13.6 Est GFR (Non-Af Amer) 11.7 BUN/Creatinine Ratio 15.3 (10-20) Glucose 163 H (70-99) mg/dl POC Glucose (70-99) Estimat Average Glucose 177 mg/dl Hemoglobin A1c 7.8 H (4.5-5.6) % Calcium 8.2 L (8.5-10.1) mg/dl Phosphorus 4.8 (2.5-4.9) mg/dl Magnesium 1.5 L (1.8-2.4) mg/dl Iron 23 L (35-175) mcg/dl TIBC 209 L (250-450) mcg/dl Transferrin 166 L (200-360) mg/dl Transferrin % Sat 10 L (20-50) % Ferritin 282.5 (8-388) ng/ml Total Bilirubin 0.3 (0.2-1) mg/dl Direct Bilirubin < 0.1 (0-0.2) mg/dl AST 9 L (15-37) U/L ALT 14 (12-78) U/L Alkaline Phosphatase 64 (45-117) U/L Total Protein 7.2 (6.4-8.2) gm/dl Albumin 2.9 L (3.4-5.0) gm/dl Urine Color Urine Appearance (Clear) Urine pH (4.5-7.5) Ur Specific [place] (1.000-1.030) Urine Protein (Negative) Urine Glucose (UA) (Negative) Urine Ketones (Negative) Urine Blood (Negative) Urine Nitrite (Negative) Urine Bilirubin (Negative) Urine Urobilinogen (Negative) Ur Leukocyte Esterase (Negative) Urine WBC (Auto) (0-5) /hpf Urine RBC (Auto) (0-4) /hpf U Hyaline Cast (Auto) (0-5) /lpf U Epithel Cells (Auto) (0-5) /lpf Urine Bacteria (Auto) (Negative) Ur Random Creatinine mg/dl U Random Total Protein (0-11.9) mg/dl Protein/Creatinin Ratio (0-0.2) Stool Occult Bld Scrn (Negative) Blood Type A Positive Blood Type Recheck Antibody Screen NEGATIVE Crossmatch See Detail 05/02/18 Range/Units 18:24 WBC 10.77 (4.8-10.8) K/uL RBC 2.37 L (4.7-6.1) M/uL Hgb 7.0 L (14.0-18.0) g/dL Hct 21.6 L (42-52) % MCV 91.1 (80-100) fL MCH 29.5 (25-34) pg MCHC 32.4 (32-36) g/dL RDW Std Deviation 53.8 H (36.4-46.3) fL RDW Coeff of Bart 16.1 H (11.5-14.5) % Plt Count 234 (130-400) K/uL MPV 9.9 (7.4-10.4) fL Immature Gran % (Auto) 0.1 % Neut % (Auto) 74.1 % Lymph % (Auto) 16.2 % [place] % (Auto) 8.0 % Eos % (Auto) 1.3 % Baso % (Auto) 0.3 % Immature Gran # (Auto) 0.01 (0.00-0.02) K/uL Neut # (Auto) 7.98 H (1.4-6.5) K/uL Lymph # (Auto) 1.75 (1.2-3.4) K/uL [place] # (Auto) 0.86 H (0.11-0.59) K/uL Eos # (Auto) 0.14 (0-0.5) K/uL Baso # (Auto) 0.03 (0-0.2) K/uL RBC Morphology Unremarkable Tear Drop Cells Peripher Smr Path Cons Pending PT (9.0-12.0) Seconds INR (0.9-1.1) APTT (21.0-31.0) Seconds PTT Ratio Sodium (136-145) mmol/L Potassium (3.5-5.1) mmol/L Chloride (98-107) mmol/L Carbon Dioxide (21-32) mmol/L Anion Gap (3-11) BUN (7-18) mg/dl Creatinine (0.6-1.4) mg/dl Est Cr Clr Drug Dosing Est GFR ( Amer) Est GFR (Non-Af Amer) BUN/Creatinine Ratio (10-20) Glucose (70-99) mg/dl POC Glucose (70-99) Estimat Average Glucose mg/dl Hemoglobin A1c (4.5-5.6) % Calcium (8.5-10.1) mg/dl Phosphorus (2.5-4.9) mg/dl Magnesium (1.8-2.4) mg/dl Iron (35-175) mcg/dl TIBC (250-450) mcg/dl Transferrin (200-360) mg/dl Transferrin % Sat (20-50) % Ferritin (8-388) ng/ml Total Bilirubin (0.2-1) mg/dl Direct Bilirubin (0-0.2) mg/dl AST (15-37) U/L ALT (12-78) U/L Alkaline Phosphatase (45-117) U/L Total Protein (6.4-8.2) gm/dl Albumin (3.4-5.0) gm/dl Urine Color Urine Appearance (Clear) Urine pH (4.5-7.5) Ur Specific [place] (1.000-1.030) Urine Protein (Negative) Urine Glucose (UA) (Negative) Urine Ketones (Negative) Urine Blood (Negative) Urine Nitrite (Negative) Urine Bilirubin (Negative) Urine Urobilinogen (Negative) Ur Leukocyte Esterase (Negative) Urine WBC (Auto) (0-5) /hpf Urine RBC (Auto) (0-4) /hpf U Hyaline Cast (Auto) (0-5) /lpf U Epithel Cells (Auto) (0-5) /lpf Urine Bacteria (Auto) (Negative) Ur Random Creatinine mg/dl U Random Total Protein (0-11.9) mg/dl Protein/Creatinin Ratio (0-0.2) Stool Occult Bld Scrn (Negative) Blood Type Blood Type Recheck Antibody Screen Crossmatch
[2018-05-03] MEDS: cephALEXin 500 MG CAP PO SCH (17:19)
[2018-05-03] MEDS: IRON SUCROSE 200 MG in 0.9 % SODIUM CHLORIDE 100 ML IV SCH (18:25)
[2018-05-03] MEDS: SODIUM BICARBONATE 650 MG TAB PO SCH (21:26)
[2018-05-03] MEDS: PANTOprazole 40 MG TAB PO SCH (21:36)
[2018-05-04 07:18] LABS: Hematocrit (blood only) 21.5 % (42-52); Mean Corpuscular Hgb Conc 32.6 g/dL (32-36); Mean Corpuscular Volume 90.7 fL (80-100); Mean Platelet Volume 9.7 fL (7.4-10.4); Platelet Count 181 K/uL (130-400); RDW Coefficient of Variation 15.7 % (11.5-14.5); RDW Standard Deviation 51.9 fL (36.4-46.3); Red Blood Count 2.37 M/uL (4.7-6.1); White Blood Count 8.18 K/uL (4.8-10.8)
[2018-05-04 08:00] LABS: BUN Creatinine Ratio 14.6 (10-20); Calcium 7.9 mg/dl (8.5-10.1); Creatinine Clr Calc Pharmacy 20.1 ml/min; Est GFR (African American) 13.2; Est GFR (Non-African American) 11.4; Potassium 3.9 mmol/L (3.5-5.1)
[2018-05-04] MEDS ORDERED: SODIUM CHLORIDE 0.9% 250 ML IV PRN (08:42)
[2018-05-04] MEDS: CARVEDILOL 12.5 MG TAB PO SCH ×2 (09:10→21:17)
[2018-05-04] MEDS: SODIUM BICARBONATE 650 MG TAB PO SCH ×2 (09:10→21:20)
[2018-05-04] MEDS: PANTOprazole 40 MG TAB PO SCH (09:11)
[2018-05-04] MEDS: cephALEXin 500 MG CAP PO SCH (09:11)
[2018-05-04] MEDS: MAGNESIUM OXIDE 400 MG TAB PO SCH ×2 (09:11→21:18)
[2018-05-04] MEDS: INSULIN GLARGINE SOLOSTAR 100 UNITS/ML 3 ML PEN SC SCH ×2 (09:12→21:17)
[2018-05-04] MEDS: INSULIN ASPART 100 UNITS/ML 3 ML PEN SC SCH ×4 (09:12→21:18)
--- NOTE | 2018-05-04 10:16 | Nephrology Progress Note ---
Date of Service May 04, 2018 Assessment & Plan (1) CKD (chronic kidney disease): -- Continue NaHCO3 therapy to correct metabolic acidosis -- Renal US: No obstruction. Normal sized kidneys. One simple cyst reported -- Urinalysis reveals microscopic hematuria and high grade proteinuria. Proteinuria is likely related to underlying DM and obesity. Will order serum free light chains w/ next lab draw -- Urine cx was positive for E. Coli. This may explain hematuria and pyuria. Bacteria is sensitive to Cephalosporins. Patient is currently on Cefalexin therapy -- Indications/benefits/risks & alternatives to dialysis (including hospice) discussed in detail w/ the patient and his family. Mr. Delaney indicated that he does not wish to pursue dialysis. His family is supportive of his decision (2) Anemia: -- Recommend transfusion to maintain Hgb > 8.0 -- Patient has iron deficiency. He is currently on day #2 of 5 IV Venofer therapy -- FOBT positive x 1. Recommend consultation w/ Gastroenterology (3) H/O CHF: -- Recommend Echocardiogram to assess LVEF and PA pressure Subjective Mr. Delaney was seen & examined in his hospital room this morning. He currently denies angina, abdominal pain or uremic symptoms. Mr. Delaney denies overt blood loss. Despite transfusion w/ 2 U PRBC yesterday his Hgb is unchanged at ~ 7.0. Mr. Delaney is currently receiving a 3rd unit PRBC this am. He acknowledges a need for continued hospitalization and GI evaluation but indicates that he does not want dialysis if his condition worsens. His family was present at the time of our conversation and is supportive of his decision. Respiratory: + dyspnea on exertion Cardiovascular: no chest pain Gastrointestinal: no abdominal pain Physical Exam 2 Vital Signs (Past 24 Hours): Last Vital Signs Temp 36.5 C 05/04/18 09:35 Pulse 88 05/04/18 09:35 Resp 18 05/04/18 09:35 BP 163/76 H 05/04/18 09:35 Pulse Ox 100 05/04/18 09:35 Constitutional: + obese Eyes: PERRL, conjunctivae normal, anicteric sclerae Neck: trachea midline, no thyromegaly Respiratory: normal respiratory effort, lungs clear to auscultation no respiratory distress Cardiovascular: Rate/Rhythm: regular rate and regular rhythm Extremities: + edema (3+ LE pitting edema) Results & Data Laboratory Results Laboratory Tests 05/02/18 05/04/18 05/04/18 18:24 06:51 06:51 WBC 8.18 Hgb 7.0 L Hct 21.5 L Plt Count 181 INR 1.1 Sodium 139 Potassium 3.9 Chloride 111 H Carbon Dioxide 15 L BUN 70 H Creatinine 4.80 H* Glucose 132 H
--- NOTE | 2018-05-04 13:24 | Hospitalist Progress Note ---
Date of Service May 04, 2018 Assessment & Plan (1) Acute kidney injury: - Presented with BEBE, creatinine increased to ~5; remains elevated today, was 4.80 this morning. - Baseline creatinine was ~2.0-2.5; BEBE likely related to progression of CKD. - Nephrology consulted, appreciate input. - Renal US was negative, one simple cyst reported. - U/a +microscopic hematuria and high grade proteinuria (likely related to DM and obesity). - Serum free light chains pending. - Discussed dialysis with patient -- he does not want HD in future if necessary. (2) Chronic kidney disease, stage IV (severe): - Related to underlying DM and HTN. - Renally dose all meds; nephro consulted. - Pt. does not want HD in future if necessary. (3) Metabolic acidosis: - Bicarb level trending down, was 15 today; has anion gap of 13.0. - Monitor BMP qAM. - Continue sodium bicarb 650 mg BID. (4) Urinary tract infection: - UC positive for E. coli. - Continue Keflex for coverage per sensitivities. (5) GI bleed: - Presented with significant anemia at outpt appt, hgb ~5.8; likely related to upper GI bleed. - Hemoglobin remains low despite transfusion support -- will transfuse additional 2 units pRBCs today. - FOBT was positive. - Continue Protonix IV BID. - Consulted GI, pt. was agreeable to scope on 05/05/2018. (6) Anemia of chronic disease: - Iron studies are consistent with anemia of chronic disease; pt. likely has acute anemia related to GI bleed as well. - Transfuse for hgb <8 in setting of CKD. - Venofer 200 mg IV daily for 5 day course. - Monitor CBC qAM and post transfusion. (7) Scrotal lesion: - Large ulcer noted in scrotal area; pt. reports area bleeds at times. - Will consult wound care. (8) Diabetes mellitus, type II: - Continue Lantus 8 units BID with SSI coverage. - Hemoglobin A1C was 7.8 during this admission. (9) Hypertension: - Pt. was not taking Coreg at home; has been hypertensive. - Restarted Coreg 12.5 mg PO BID. (10) History of seizures: - Not currently on medication. (11) DVT prophylaxis: - SCDs; hold Heparin in setting of acute bleed/planned procedure. Dispo: Telemetry; plan for scope on 05/05/18 per GI. Supervising Physician Co-Signing Physician Notes PA Supervision Note: I did not personally see or examine the patient today, but I verified all rae points of ALYSSIA Joy's assessment and plan with the following exceptions/ additions: None Subjective Patient is very anxious and would like to be discharged; he was agreeable to staying overnight after discussing acute drop in hemoglobin/GI bleed. Pt. denies melena or hematochezia. FOBT was positive but bedside nurse states stool is not grossly bloody. He does not appear fluid overloaded. Has SOB with exertion, likely related to acute anemia. Renal function remains stable, no improvement. Review of Systems All systems reviewed & are unremarkable except as noted in HPI & below Constitutional: + weakness; no fever and no chills Respiratory: + cough and + dyspnea on exertion; no dyspnea Cardiovascular: + edema; no chest pain and no palpitations Gastrointestinal: no abdominal pain, no nausea, no constipation, no diarrhea/ loose stools and no melena Genitourinary (Male): no difficulty urinating Integumentary: + non-healing lesions (Scrotal lesion) Allergy / Immunological: no rash Physical Exam 2 Vital Signs (Past 24 Hours): Last Vital Signs Temp 36.5 C 05/04/18 12:15 Pulse 72 05/04/18 12:15 Resp 18 05/04/18 12:15 BP 128/80 05/04/18 12:15 Pulse Ox 97 05/04/18 11:15 Physical Exam: General: Obese male, in no acute distress. HEENT: NC/AT; PERRLA with EOMI; [place] conjunctiva, MMM. Neck: Supple and nontender Cardiac: RRR w/o murmurs, gallops or rubs Lungs: CTA bilaterally; No rhonchi, wheezing, or rales Abdomen: Bowel normoactive X 4; Nontender to palpation Extremities: Warm. + chronic nonpitting LE edema in both legs. Neuro: No focal weakness Skin: Chronic venous changes in bilat LE, did not examine scrotum today. Results & Data Laboratory Results 05/04/18 05/04/18 05/04/18 Range/Units 12:00 07:33 06:51 WBC (4.8-10.8) K/uL RBC (4.7-6.1) M/uL Hgb (14.0-18.0) g/dL Hct (42-52) % MCV (80-100) fL MCH (25-34) pg MCHC (32-36) g/dL RDW Std Deviation (36.4-46.3) fL RDW Coeff of Bart (11.5-14.5) % Plt Count (130-400) K/uL MPV (7.4-10.4) fL Sodium 139 (136-145) mmol/L Potassium 3.9 (3.5-5.1) mmol/L Chloride 111 H (98-107) mmol/L Carbon Dioxide 15 L (21-32) mmol/L Anion Gap 13.0 H (3-11) BUN 70 H (7-18) mg/dl Creatinine 4.80 H* (0.6-1.4) mg/dl Est Cr Clr Drug Dosing 20.1 ml/min Est GFR ( Amer) 13.2 Est GFR (Non-Af Amer) 11.4 BUN/Creatinine Ratio 14.6 (10-20) Glucose 132 H (70-99) mg/dl POC Glucose 144 H 141 H (70-99) Calcium 7.9 L (8.5-10.1) mg/dl Stool Occult Bld Scrn (Negative) Free [place] LC, Quant Free Lambda LC, Quant Free [place]/Lambda Ratio Blood Type Antibody Screen Crossmatch 05/04/18 05/04/18 05/03/18 Range/Units 06:51 06:51 20:35 WBC 8.18 (4.8-10.8) K/uL RBC 2.37 L (4.7-6.1) M/uL Hgb 7.0 L (14.0-18.0) g/dL Hct 21.5 L (42-52) % MCV 90.7 (80-100) fL MCH 29.5 (25-34) pg MCHC 32.6 (32-36) g/dL RDW Std Deviation 51.9 H (36.4-46.3) fL RDW Coeff of Bart 15.7 H (11.5-14.5) % Plt Count 181 (130-400) K/uL MPV 9.7 (7.4-10.4) fL Sodium (136-145) mmol/L Potassium (3.5-5.1) mmol/L Chloride (98-107) mmol/L Carbon Dioxide (21-32) mmol/L Anion Gap (3-11) BUN (7-18) mg/dl Creatinine (0.6-1.4) mg/dl Est Cr Clr Drug Dosing ml/min Est GFR ( Amer) Est GFR (Non-Af Amer) BUN/Creatinine Ratio (10-20) Glucose (70-99) mg/dl POC Glucose 201 H (70-99) Calcium (8.5-10.1) mg/dl Stool Occult Bld Scrn (Negative) Free [place] LC, Quant Pending Free Lambda LC, Quant Pending Free [place]/Lambda Ratio Pending Blood Type Antibody Screen Crossmatch 05/03/18 05/03/18 05/03/18 Range/Units 16:36 13:53 13:53 WBC (4.8-10.8) K/uL RBC (4.7-6.1) M/uL Hgb 8.2 L (14.0-18.0) g/dL Hct 25.3 L (42-52) % MCV (80-100) fL MCH (25-34) pg MCHC (32-36) g/dL RDW Std Deviation (36.4-46.3) fL RDW Coeff of Bart (11.5-14.5) % Plt Count (130-400) K/uL MPV (7.4-10.4) fL Sodium 136 (136-145) mmol/L Potassium 4.0 (3.5-5.1) mmol/L Chloride 111 H (98-107) mmol/L Carbon Dioxide 17 L (21-32) mmol/L Anion Gap 8.0 (3-11) BUN 73 H (7-18) mg/dl Creatinine 4.60 H* (0.6-1.4) mg/dl Est Cr Clr Drug Dosing 20.9 ml/min Est GFR ( Amer) 13.9 Est GFR (Non-Af Amer) 12.0 BUN/Creatinine Ratio 15.8 (10-20) Glucose 122 H (70-99) mg/dl POC Glucose 118 H (70-99) Calcium 8.3 L (8.5-10.1) mg/dl Stool Occult Bld Scrn (Negative) Free [place] LC, Quant Free Lambda LC, Quant Free [place]/Lambda Ratio Blood Type Antibody Screen Crossmatch 05/03/18 05/02/18 Range/Units 13:45 18:24 WBC (4.8-10.8) K/uL RBC (4.7-6.1) M/uL Hgb (14.0-18.0) g/dL Hct (42-52) % MCV (80-100) fL MCH (25-34) pg MCHC (32-36) g/dL RDW Std Deviation (36.4-46.3) fL RDW Coeff of Bart (11.5-14.5) % Plt Count (130-400) K/uL MPV (7.4-10.4) fL Sodium (136-145) mmol/L Potassium (3.5-5.1) mmol/L Chloride (98-107) mmol/L Carbon Dioxide (21-32) mmol/L Anion Gap (3-11) BUN (7-18) mg/dl Creatinine (0.6-1.4) mg/dl Est Cr Clr Drug Dosing ml/min Est GFR ( Amer) Est GFR (Non-Af Amer) BUN/Creatinine Ratio (10-20) Glucose (70-99) mg/dl POC Glucose (70-99) Calcium (8.5-10.1) mg/dl Stool Occult Bld Scrn Positive H (Negative) Free [place] LC, Quant Free Lambda LC, Quant Free [place]/Lambda Ratio Blood Type A Positive Antibody Screen NEGATIVE Crossmatch See Detail
--- NOTE | 2018-05-04 13:34 | Gastrointestinal Consultation ---
Date of Consultation May 04, 2018 Assessment & Plan (1) Anemia: No overt ongoing GI bleeding and seems related to his chronic kidney disease but will need to r/o GI blood loss in view of positive FOBT. Recommend: After a lengthy discussion with the patient and his family, he wishes to have endoscopy done prior to discharge. EGD and colonoscopy tomorrow. Clear liquids now, NPO after midnight. Golytely 4L and Dulcolax 20 mg. (2) Positive occult stool blood test: History of Present Illness Attending Physician: Dominique Verdugo MD 72 years old male patient with medical comorbids of anemia, CKD, Seizure disorder, DM, HTN admitted due to worsening kidney function and drop in H/H. Patient denies any rectal bleeding or hematemesis, no abdominal pain, diarrhea or constipation. Given PRBC and H/H improved. He reports Hx of rectal bleeding due to hemorrhoids in the past but never had a colonoscopy. Allergies Allergy/AdvReac Type Severity Reaction Status Date / Time No Known Allergies Allergy Unverified 05/02/18 21:23 Home Medications Home Medications Medication Instructions Recorded Confirmed Type Phenytoin Sodium (Dilantin Unknown BID #0 10/18/08 History Dose) Sulfa/Trimethoprim (Bactrim Ds 1 tab PO BID 14 Days #0 10/18/08 Rx 800MG/160MG) Tamsulosin Hcl (Flomax *) 0.4 mg PO DAILY 14 Days #0 10/18/08 Rx Patient History Medical History CHF (congestive heart failure) CKD (chronic kidney disease) Diabetes Hypertension Seizures Surgical History S/P cataract extraction Family History Other Diabetes Stroke Social History Current Living Situation: Family Other Information That Helps Us Care for You: No Feels Safe at Home: Yes Safety Concerns: Feels Safe At This Time Smoking Status: Former smoker Do You Dip or Chew Tobacco: No Second Hand Exposure: No Tobacco Cessation Education Requested by Patient: No Hx Alcohol Use: No Hx Substance Use: No Beliefs That Will Affect Care: None Preferred Language: [place]awian Communication Ability: Effective Bomb Loader Required: No Review of Systems Constitutional: no fever, no chills, no fatigue and no weight loss Eyes: no eye pain and no worsening vision Ear, Nose, Mouth, Throat: no tinnitus, no dizziness, no nasal discharge and no epistaxis Respiratory: no cough, no dyspnea, no dyspnea on exertion and no wheezing Cardiovascular: no chest pain, no orthopnea, no palpitations and no edema Gastrointestinal: as per Subjective / HPI Musculoskeletal: no stiffness and no myalgia Neurologic: no localized weakness, no paralysis, no tremor(s) and no headache(s) Endocrine: no polydipsia and no polyuria Hematologic / Lymphatic: no easy bleeding and no night sweats Physical Exam 2 Vital Signs (Past 24 Hours): Last Vital Signs Temp 36.5 C 05/04/18 12:15 Pulse 72 05/04/18 12:15 Resp 18 05/04/18 12:15 BP 128/80 05/04/18 12:15 Pulse Ox 97 05/04/18 11:15 Constitutional: + well hydrated, cooperative and comfortable Eyes: PERRL, conjunctivae normal, anicteric sclerae ENMT: external ear and nose normal, oropharynx normal Neck: normal visual inspection and trachea midline Respiratory: normal respiratory effort, lungs clear to auscultation Auscultation: no wheezes Cardiovascular: RRR, no murmur, no edema Gastrointestinal (Abdomen): normal bowel sounds, soft, nontender, no hepatosplenomegaly Musculoskeletal: no cyanosis or clubbing, extremities motor strength 5/5 Skin: no rashes, warm and dry Neurologic: awake; no focal motor deficits Motor/Sensory: no tremor Results & Data Laboratory Results Laboratory Results - last 24 hr 05/02/18 05/03/18 05/03/18 18:24 13:45 13:53 WBC RBC Hgb 8.2 L Hct 25.3 L MCV MCH MCHC RDW Std Deviation RDW Coeff of Bart Plt Count MPV Sodium Potassium Chloride Carbon Dioxide Anion Gap BUN Creatinine Est Cr Clr Drug Dosing Est GFR ( Amer) Est GFR (Non-Af Amer) BUN/Creatinine Ratio Glucose POC Glucose Calcium Stool Occult Bld Scrn Positive H Blood Type A Positive Antibody Screen NEGATIVE Crossmatch See Detail 05/03/18 05/03/18 05/03/18 13:53 16:36 20:35 WBC RBC Hgb Hct MCV MCH MCHC RDW Std Deviation RDW Coeff of Bart Plt Count MPV Sodium 136 Potassium 4.0 Chloride 111 H Carbon Dioxide 17 L Anion Gap 8.0 BUN 73 H Creatinine 4.60 H* Est Cr Clr Drug Dosing 20.9 Est GFR ( Amer) 13.9 Est GFR (Non-Af Amer) 12.0 BUN/Creatinine Ratio 15.8 Glucose 122 H POC Glucose 118 H 201 H Calcium 8.3 L Stool Occult Bld Scrn Blood Type Antibody Screen Crossmatch 05/04/18 05/04/18 05/04/18 06:51 06:51 07:33 WBC 8.18 RBC 2.37 L Hgb 7.0 L Hct 21.5 L MCV 90.7 MCH 29.5 MCHC 32.6 RDW Std Deviation 51.9 H RDW Coeff of Bart 15.7 H Plt Count 181 MPV 9.7 Sodium 139 Potassium 3.9 Chloride 111 H Carbon Dioxide 15 L Anion Gap 13.0 H BUN 70 H Creatinine 4.80 H* Est Cr Clr Drug Dosing 20.1 Est GFR ( Amer) 13.2 Est GFR (Non-Af Amer) 11.4 BUN/Creatinine Ratio 14.6 Glucose 132 H POC Glucose 141 H Calcium 7.9 L Stool Occult Bld Scrn Blood Type Antibody Screen Crossmatch 05/04/18 12:00 WBC RBC Hgb Hct MCV MCH MCHC RDW Std Deviation RDW Coeff of Bart Plt Count MPV Sodium Potassium Chloride Carbon Dioxide Anion Gap BUN Creatinine Est Cr Clr Drug Dosing Est GFR ( Amer) Est GFR (Non-Af Amer) BUN/Creatinine Ratio Glucose POC Glucose 144 H Calcium Stool Occult Bld Scrn Blood Type Antibody Screen Crossmatch
[2018-05-04] MEDS ORDERED: LAVAGE SOLUTION 4000ML PO SCH (16:00)
[2018-05-04] MEDS: IRON SUCROSE 200 MG in 0.9 % SODIUM CHLORIDE 100 ML IV SCH (17:38)
[2018-05-04 18:47] LABS: Appearance Urine Turbid (Clear); Bacteria Urine Automated Negative (Negative); Bilirubin Urine Negative (Negative); Color Urine Yellow; Epithelial Cell Urine Auto 20-30 /lpf (0-5); Glucose Urine UA Trace (Negative); Ketones Urine Negative (Negative); Leukocyte Esterase Urine 3+ (Negative); Nitrite Urine Negative (Negative); Protein Urine 2+ (Negative); Specific Gravity Urine 1.013 (1.000-1.030); Urobilinogen Urine Negative (Negative); WBC Urine Automated >30 /hpf (0-5); pH Urine 5.5 (4.5-7.5)
[2018-05-04 18:48] LABS: Hematocrit (blood only) 27.4 % (42-52)
[2018-05-04] MEDS: PANTOprazole 40 MG in SYRINGE 0 ML IV SCH (21:19)
[2018-05-04] MEDS ORDERED: BISACODYL 5 MG TABEC PO ONE (22:00)
[2018-05-05 07:48] LABS: Hematocrit (blood only) 25.1 % (42-52); Hemoglobin 8.4 g/dL (14.0-18.0); Mean Corpuscular Hgb Conc 33.5 g/dL (32-36); Mean Corpuscular Volume 88.1 fL (80-100); Mean Platelet Volume 9.7 fL (7.4-10.4); Platelet Count 173 K/uL (130-400); RDW Coefficient of Variation 17.3 % (11.5-14.5); RDW Standard Deviation 56.1 fL (36.4-46.3); Red Blood Count 2.85 M/uL (4.7-6.1); White Blood Count 6.33 K/uL (4.8-10.8)
[2018-05-05 08:35] LABS: BUN Creatinine Ratio 14.1 (10-20); Calcium 8.2 mg/dl (8.5-10.1); Creatinine Clr Calc Pharmacy 20.4 ml/min; Est GFR (African American) 13.4; Est GFR (Non-African American) 11.6; Potassium 3.9 mmol/L (3.5-5.1)
--- NOTE | 2018-05-05 09:07 | XRay Report ---
SINGLE VIEW CHEST CLINICAL HISTORY: Preoperative examination. FINDINGS: An AP, portable, upright chest radiograph is obtained. No prior studies are available for c omparison at the time of dictation. The examination is significantly degraded by portable technique, apical lordotic positioning, and patient rotation. The heart is enlarged. There is prominence of the pulmonary vasculature. Trace pleural effusions are suspected and there is bibasilar atelectasis. No airspace consolidation is identified typical for pneumonia. Calcified granulomas are observed. No pne umothorax is seen. The skeletal structures are osteopenic. The bony thorax is grossly intact. Degener ative change is noted in the shoulders. IMPRESSION: 1. Cardiomegaly with prominence of the pulmonary vasculature. Correlate clinically for evidence of mi ld congestive failure. 2. Suspect trace pleural effusions with bibasilar atelectasis. Electronically signed by: Adrien Carlisle M.D. 05/05/2018 9:06 AM
--- NOTE | 2018-05-05 09:16 | Gastroenterology Progress Note ---
Date of Service May 05, 2018 Assessment & Plan (1) Anemia: 72 year old male w/ CKD, chronic anemia w/ + FOBT prepped for EGD/Colon today w/o any acute evidence of GIB. - NPO - EGD/Colon today - Please see report of endoscopy when completed for additional recommendations. Thank you for allowing us to participate in the care of this patient. Please call with any acute changes, questions or concerns. Please see addendum below with additional recommendation from my supervising physician. (2) Positive occult stool blood test: Supervising Physician Co-Signing Physician Notes I saw and evaluated the patient. We are planning to do an upper endoscopy and colonoscopy today for history of anemia and heme positive stools. We have discussed the risks of the procedures to include bleeding, infection, perforation, pain and need for follow-up studies. Subjective Pt was seen and evlauated, chart reviewed. Is NPO for EGD/Colon today. Notes he completed entire bowel prep. Is having clear, watery stools. Denies any black/ bloody BM w/ prep. No abd pain. No fever, chills, CP, SOB. Respiratory: no cough and no dyspnea Cardiovascular: no chest pain, no radiating jaw, neck or arm pain and no dyspnea Gastrointestinal: no abdominal pain, no early satiety, no vomiting, no blood in stools and no melena Physical Exam 2 Vital Signs (Past 24 Hours): Last Vital Signs Temp 36.8 C 05/05/18 07:13 Pulse 80 05/05/18 07:29 Resp 20 05/05/18 07:13 BP 131/72 05/05/18 07:13 Pulse Ox 97 05/05/18 07:13 Constitutional: well nourished, cooperative and comfortable; no acute distress Respiratory: normal respiratory effort, lungs clear to auscultation Cardiovascular: RRR, no murmur, no edema Gastrointestinal (Abdomen): normal bowel sounds, soft, nontender, no hepatosplenomegaly Skin: no rashes, warm and dry Results & Data Laboratory Results 05/05/18 05/05/18 05/05/18 Range/Units 07:37 07:36 07:36 WBC 6.33 (4.8-10.8) K/uL RBC 2.85 L (4.7-6.1) M/uL Hgb 8.4 L (14.0-18.0) g/dL Hct 25.1 L (42-52) % MCV 88.1 (80-100) fL MCH 29.5 (25-34) pg MCHC 33.5 (32-36) g/dL RDW Std Deviation 56.1 H (36.4-46.3) fL RDW Coeff of Bart 17.3 H (11.5-14.5) % Plt Count 173 (130-400) K/uL MPV 9.7 (7.4-10.4) fL Sodium 139 (136-145) mmol/L Potassium 3.9 (3.5-5.1) mmol/L Chloride 110 H (98-107) mmol/L Carbon Dioxide 17 L (21-32) mmol/L Anion Gap 12.0 H (3-11) BUN 67 H (7-18) mg/dl Creatinine 4.74 H* (0.6-1.4) mg/dl Est Cr Clr Drug Dosing 20.4 ml/min Est GFR ( Amer) 13.4 Est GFR (Non-Af Amer) 11.6 BUN/Creatinine Ratio 14.1 (10-20) Glucose 117 H (70-99) mg/dl POC Glucose 124 H (70-99) Calcium 8.2 L (8.5-10.1) mg/dl Urine Color Urine Appearance (Clear) Urine pH (4.5-7.5) Ur Specific [place] (1.000-1.030) Urine Protein (Negative) Urine Glucose (UA) (Negative) Urine Ketones (Negative) Urine Blood (Negative) Urine Nitrite (Negative) Urine Bilirubin (Negative) Urine Urobilinogen (Negative) Ur Leukocyte Esterase (Negative) Urine WBC (Auto) (0-5) /hpf Urine RBC (Auto) (0-4) /hpf U Hyaline Cast (Auto) (0-5) /lpf U Epithel Cells (Auto) (0-5) /lpf Urine Bacteria (Auto) (Negative) Urine Yeast Blood Type Antibody Screen Crossmatch 05/04/18 05/04/18 05/04/18 Range/Units 20:00 18:25 18:24 WBC (4.8-10.8) K/uL RBC (4.7-6.1) M/uL Hgb 9.0 L (14.0-18.0) g/dL Hct 27.4 L (42-52) % MCV (80-100) fL MCH (25-34) pg MCHC (32-36) g/dL RDW Std Deviation (36.4-46.3) fL RDW Coeff of Bart (11.5-14.5) % Plt Count (130-400) K/uL MPV (7.4-10.4) fL Sodium (136-145) mmol/L Potassium (3.5-5.1) mmol/L Chloride (98-107) mmol/L Carbon Dioxide (21-32) mmol/L Anion Gap (3-11) BUN (7-18) mg/dl Creatinine (0.6-1.4) mg/dl Est Cr Clr Drug Dosing ml/min Est GFR ( Amer) Est GFR (Non-Af Amer) BUN/Creatinine Ratio (10-20) Glucose (70-99) mg/dl POC Glucose 123 H (70-99) Calcium (8.5-10.1) mg/dl Urine Color Yellow Urine Appearance Turbid H (Clear) Urine pH 5.5 (4.5-7.5) Ur Specific [place] 1.013 (1.000-1.030) Urine Protein 2+ H (Negative) Urine Glucose (UA) Trace H (Negative) Urine Ketones Negative (Negative) Urine Blood 2+ H (Negative) Urine Nitrite Negative (Negative) Urine Bilirubin Negative (Negative) Urine Urobilinogen Negative (Negative) Ur Leukocyte Esterase 3+ H (Negative) Urine WBC (Auto) >30 H (0-5) /hpf Urine RBC (Auto) 5-10 H (0-4) /hpf U Hyaline Cast (Auto) 1-5 (0-5) /lpf U Epithel Cells (Auto) 20-30 H (0-5) /lpf Urine Bacteria (Auto) Negative (Negative) Urine Yeast Not Reportable Blood Type Antibody Screen Crossmatch 05/04/18 05/04/18 05/02/18 Range/Units 16:08 12:00 18:24 WBC (4.8-10.8) K/uL RBC (4.7-6.1) M/uL Hgb (14.0-18.0) g/dL Hct (42-52) % MCV (80-100) fL MCH (25-34) pg MCHC (32-36) g/dL RDW Std Deviation (36.4-46.3) fL RDW Coeff of Bart (11.5-14.5) % Plt Count (130-400) K/uL MPV (7.4-10.4) fL Sodium (136-145) mmol/L Potassium (3.5-5.1) mmol/L Chloride (98-107) mmol/L Carbon Dioxide (21-32) mmol/L Anion Gap (3-11) BUN (7-18) mg/dl Creatinine (0.6-1.4) mg/dl Est Cr Clr Drug Dosing ml/min Est GFR ( Amer) Est GFR (Non-Af Amer) BUN/Creatinine Ratio (10-20) Glucose (70-99) mg/dl POC Glucose 111 H 144 H (70-99) Calcium (8.5-10.1) mg/dl Urine Color Urine Appearance (Clear) Urine pH (4.5-7.5) Ur Specific [place] (1.000-1.030) Urine Protein (Negative) Urine Glucose (UA) (Negative) Urine Ketones (Negative) Urine Blood (Negative) Urine Nitrite (Negative) Urine Bilirubin (Negative) Urine Urobilinogen (Negative) Ur Leukocyte Esterase (Negative) Urine WBC (Auto) (0-5) /hpf Urine RBC (Auto) (0-4) /hpf U Hyaline Cast (Auto) (0-5) /lpf U Epithel Cells (Auto) (0-5) /lpf Urine Bacteria (Auto) (Negative) Urine Yeast Blood Type A Positive Antibody Screen NEGATIVE Crossmatch See Detail
[2018-05-05] MEDS: CARVEDILOL 12.5 MG TAB PO SCH ×2 (09:35→21:12)
[2018-05-05] MEDS: cephALEXin 500 MG CAP PO SCH (09:35)
[2018-05-05] MEDS: MAGNESIUM OXIDE 400 MG TAB PO SCH ×2 (09:36→21:11)
[2018-05-05] MEDS: SODIUM BICARBONATE 650 MG TAB PO SCH ×2 (09:36→21:11)
[2018-05-05] MEDS: INSULIN GLARGINE SOLOSTAR 100 UNITS/ML 3 ML PEN SC SCH ×2 (09:36→21:12)
[2018-05-05] MEDS: PANTOprazole 40 MG in SYRINGE 0 ML IV SCH ×2 (09:36→21:11)
[2018-05-05] MEDS: INSULIN ASPART 100 UNITS/ML 3 ML PEN SC SCH ×4 (09:38→21:12)
[2018-05-05] MEDS ORDERED: EPOETIN ALFA 20,000 UNITS/ML VIAL SQ ONE (11:00)
--- NOTE | 2018-05-05 11:14 | History & Physical Bridge Note ---
Date of Service May 05, 2018 History & Physical Bridge Note I have examined the patient, reviewed the History & Physical and in the interval since the performance of the History & Physical I have noted the following changes of clinical significance: no changes noted
--- NOTE | 2018-05-05 11:29 | Anesthesiology Consultation ---
Date of Service May 05, 2018 Assessment & Plan Chart Review Chart Review: Acceptable Risk for Surgery Consults Requested none NPO Date Last Intake of Fluids: 05/04/18 Time Last Intake of Fluids: 23:00 Date Last Intake of Solids: 05/04/18 Time Last Intake of Solids: 08:00 Last Intake of Solids Comment: eggs, toast History Surgery Operation Date: 05/05/18 11:45 Proposed Procedures p Colonoscopy EGD Dr Jem Parish Height/Weight Height: 5 ft 5 in Weight: 155.8 kg Allergies Allergy/AdvReac Type Severity Reaction Status Date / Time No Known Allergies Allergy Unverified 05/02/18 21:23 Medications Home Medications Medication Instructions Recorded Confirmed Last Taken Phenytoin Sodium (Dilantin Unknown BID #0 10/18/08 Unknown Dose) Sulfa/Trimethoprim (Bactrim Ds 1 tab PO BID 14 Days #0 10/18/08 Unknown 800MG/160MG) Tamsulosin Hcl (Flomax *) 0.4 mg PO DAILY 14 Days #0 10/18/08 Unknown Active Medications Generic Name Dose Route Start Last Admin Trade Name Reynaldoq PRN Reason Stop Dose Admin Carvedilol 12.5 mg 05/03/18 09:00 05/05/18 09:35 Coreg PO 06/02/18 08:59 12.5 mg BID [place] Administration Cephalexin HCl 500 mg 05/03/18 16:15 05/05/18 09:35 Keflex PO 05/08/18 16:14 500 mg DAILY [place] Administration Iron Sucrose 200 mg/ Sodium 110 mls @ 220 mls/hr 05/03/18 18:00 05/04/18 18: 22 Chloride IV 05/08/18 17:59 Infused Q24H [place] Infusion Pantoprazole Sodium 40 mg/ 10 mls @ 5 mls/min 05/04/18 21:00 05/05/18 09:36 Syringe IV 06/03/18 20:59 5 mls/min BID [place] Administration Insulin Aspart 0 units 05/03/18 07:30 05/05/18 09:38 Novolog Flexpen SC 06/02/18 07:29 Not Given ACHS [place] Insulin Glargine 8 units 05/02/18 21:15 05/05/18 09:36 Lantus Solostar Pen SC 06/01/18 21:14 8 units BID [place] Administration Magnesium Oxide 400 mg 05/03/18 09:00 05/05/18 09:36 Mag-Ox PO 06/02/18 08:59 400 mg BID [place] Administration Sodium Bicarbonate 650 mg 05/03/18 21:00 05/05/18 09:36 Sodium Bicarbonate PO 06/02/18 20:59 650 mg BID [place] Administration Past Medical History Medical History CHF (congestive heart failure) CKD (chronic kidney disease) Diabetes Hypertension Seizures Past Family History Family History Other Diabetes Stroke Past Surgical History Surgical History S/P cataract extraction Social History Smoking Status: Former smoker Do You Dip or Chew Tobacco: No Hx Alcohol Use: No Hx Substance Use: No substance use type: does not use Physical Exam Vital Signs Last Vital Signs Temp 36.9 C 05/05/18 11:18 Pulse 74 05/05/18 11:18 Resp 18 05/05/18 11:18 BP 132/78 05/05/18 11:18 Pulse Ox 99 05/05/18 11:18 Testing Laboratory Results 05/05/18 07:36 05/05/18 07:36 Blood Type A Positive 05/02/18 18:24 Antibody Screen NEGATIVE 05/02/18 18:24 PT 11.0 Seconds (9.0-12.0) 05/02/18 18:24 INR 1.1 (0.9-1.1) 05/02/18 18:24 APTT 27.5 Seconds (21.0-31.0) 05/02/18 18:24 Hemoglobin A1c 7.8 % (4.5-5.6) H 05/02/18 18:24 Urine Color Yellow 05/04/18 18:25 Urine Appearance Turbid (Clear) H 05/04/18 18:25 Urine pH 5.5 (4.5-7.5) 05/04/18 18:25 Ur Specific [place] 1.013 (1.000-1.030) 05/04/18 18:25 Urine Protein 2+ (Negative) H 05/04/18 18:25 Urine Glucose (UA) Trace (Negative) H 05/04/18 18:25 Urine Ketones Negative (Negative) 05/04/18 18:25 Urine Nitrite Negative (Negative) 05/04/18 18:25 Ur Leukocyte Esterase 3+ (Negative) H 05/04/18 18:25 Urine WBC (Auto) >30 /hpf (0-5) H 05/04/18 18:25 Urine RBC (Auto) 5-10 /hpf (0-4) H 05/04/18 18:25 U Hyaline Cast (Auto) 1-5 /lpf (0-5) 05/04/18 18:25 U Epithel Cells (Auto) 20-30 /lpf (0-5) H 05/04/18 18:25 Urine Bacteria (Auto) Negative (Negative) 05/04/18 18:25 05/02/18 18:48 Urine Culture - Final Urine,Clean Catch Escherichia coli 05/05/18 07:37 POC Glucose 124 H
[2018-05-05] MEDS ORDERED: LIDOCAINE HCL 2% 2 ML VIAL/AMP(20MG/ML) INFIL ONE (11:39)
[2018-05-05] MEDS ORDERED: PROPOFOL IV EMULSION 10 MG/ML 20 ML VIAL IV ONE ×2 (11:39→12:08)
--- NOTE | 2018-05-05 11:50 | Nephrology Progress Note ---
Date of Service May 05, 2018 Assessment & Plan (1) CKD (chronic kidney disease): 72-year-old gentlemen with history of hypertension, chronic kidney disease admitted with acute kidney injury and anemia. Received 3 units of blood transfusion however hemoglobin has been dropping in between transfusion. FOBT was positive. Evaluated by GI and plan for EGD colonoscopy this afternoon. Baseline creatinine was around 2.2-2.5. Found to have acute kidney injury with creatinine around 4.8-5 over last 3 weeks. Over last few days creatinine remained stable suggesting probably underlying progressive worsening of renal function since lab in June 2017 and this is probably his baseline for quite some time. Renal ultrasound was negative. Urinalysis showed 2+ proteinuria. Paraproteinemia workup currently pending. Found to have UTI with E coli currently on cephalexin.. -- Continue NaHCO3 therapy to correct metabolic acidosis -- Indications/benefits/risks & alternatives to dialysis (including hospice) again discussed in detail w/ the patient and his family. He need some more time to make decision. Discussed with social service regarding his hospital B and eventual cost management for dialysis if he decides to start on dialysis. His son reports that previously they side 4029 form to refuse any assistance from government. Regarding cost for dialysis there is not a lot of options other than self pay. Patient understands and will make decision after discussion with family however he is leaning towards not considering dialysis. --continue on IV Venofer therapy --Epogen 56595 unit x 1 dose 05/05/17 (2) Anemia: -- Recommend transfusion to maintain Hgb > 8.0 -- Patient has iron deficiency. He is currently on day #2 of 5 IV Venofer therapy -- FOBT positive x 1. Recommend consultation w/ Gastroenterology (3) H/O CHF: -- Recommend Echocardiogram to assess LVEF and PA pressure Subjective Curt was seen & examined in his hospital room this morning. He currently denies angina, abdominal pain or uremic symptoms. Hemoglobin dropped again slightly to 8.4 this morning, the the electrolyte including renal function stable. Blood pressure well controlled. Respiratory: + dyspnea on exertion Physical Exam 2 Vital Signs (Past 24 Hours): Last Vital Signs Temp 36.9 C 05/05/18 11:18 Pulse 74 05/05/18 11:18 Resp 18 05/05/18 11:18 BP 132/78 05/05/18 11:18 Pulse Ox 99 05/05/18 11:18 Constitutional: WD/WN, vitals as above Respiratory: normal respiratory effort, lungs clear to auscultation Cardiovascular: RRR, no murmur, no edema Neurologic: moves all extremities and awake Psychiatric: Orientation: alert and oriented x 3
[2018-05-05] MEDS ORDERED: PHENYLEPHRINE 100MCG/ML 5ML SYR ONE (12:08)
[2018-05-05] MEDS ORDERED: ENDOSCOPIC MARKER 5 ML SYR TOP ONE (12:08)
--- NOTE | 2018-05-05 12:20 | GI REPORT ---
Patient Name: Curt Delaney Procedure Date: 05/05/2018 11:38 AM Date of : 1945 Admit Type: Inpatient Age: 72 Gender: Male Attending MD: Dai Parish DO Procedure: Upper GI endoscopy Providers: Dai Parish DO Referring MD: María Frank Do Indications: Occult blood in stool Medicines: Monitored Anesthesia Care Complications: No immediate complications. Estimated blood loss: Minimal. Estimated Blood Loss: Estimated blood loss was minimal. Procedure: Pre-Anesthesia Assessment: - Prior to the procedure, a History and Physical was performed, and patient medications, allergies and sensitivities were reviewed. The patient's tolerance of previous anesthesia was reviewed. - The risks and benefits of the procedure and the sedation options and risks were discussed with the patient. All questions were answered and informed consent was obtained. - Patient identification and proposed procedure were verified prior to the procedure by the physician, the nurse and the custom shoemaker. The procedure was verified in the procedure room. - Pre-procedure physical examination revealed no contraindications to sedation. - ASA Grade Assessment: III - A patient with severe systemic disease. - After reviewing the risks and benefits, the patient was deemed in satisfactory condition to undergo the procedure. - The anesthesia plan was to use monitored anesthesia care (MAC). - Immediately prior to administration of medications, the patient was re-assessed for adequacy to receive sedatives. - The heart rate, respiratory rate, oxygen saturations, blood pressure, adequacy of pulmonary ventilation, and response to care were monitored throughout the procedure. - The physical status of the patient was re-assessed after the procedure. After obtaining informed consent, the endoscope was passed under direct vision. Throughout the procedure, the patient's blood pressure, pulse, and oxygen saturations were monitored continuously. The Scope was introduced through the mouth, and advanced to the third part of duodenum. The upper GI endoscopy was accomplished without difficulty. The patient tolerated the procedure well. Findings: The examined esophagus was normal. The Z-line was regular and was found 37 cm from the incisors. Diffuse mild inflammation characterized by congestion (edema) and granularity was found in the entire examined stomach. Biopsies were taken with a cold forceps for histology. Estimated blood loss was minimal. The examined duodenum was normal. Impression: - Normal esophagus. - Z-line regular, 37 cm from the incisors. - Gastritis. Biopsied. - Normal examined duodenum. Recommendation: - Perform an upper endoscopic ultrasound (UEUS) today. - Await pathology results. Dai Parish D.O. Dai Parish, 05/05/2018 12:19:52 PM This report has been signed electronically. Note Initiated On: 05/05/2018 11:38 AM Number of Addenda: 0 I attest to the content of the Intraoperative Record and orders documented therein, exceptions below {[id number]}
--- NOTE | 2018-05-05 12:27 | GI REPORT ---
Patient Name: Curt Delaney Procedure Date: 05/05/2018 11:37 AM Date of : 1945 Admit Type: Inpatient Age: 72 Gender: Male Attending MD: Dai Parish DO Procedure: Colonoscopy Providers: Dai Parish DO Referring MD: María Frank Do Indications: Gastrointestinal occult blood loss Medicines: Monitored Anesthesia Care Complications: No immediate complications. Estimated blood loss: Minimal. Estimated Blood Loss: Estimated blood loss was minimal. Procedure: Pre-Anesthesia Assessment: - Prior to the procedure, a History and Physical was performed, and patient medications, allergies and sensitivities were reviewed. The patient's tolerance of previous anesthesia was reviewed. - Prior to the procedure, a History and Physical was performed, and patient medications, allergies and sensitivities were reviewed. The patient's tolerance of previous anesthesia was reviewed. - The risks and benefits of the procedure and the sedation options and risks were discussed with the patient. All questions were answered and informed consent was obtained. - Patient identification and proposed procedure were verified prior to the procedure by the physician, the nurse and the torch brazer. The procedure was verified in the procedure room. - Pre-procedure physical examination revealed no contraindications to sedation. - ASA Grade Assessment: III - A patient with severe systemic disease. - After reviewing the risks and benefits, the patient was deemed in satisfactory condition to undergo the procedure. - The anesthesia plan was to use monitored anesthesia care (MAC). - Immediately prior to administration of medications, the patient was re-assessed for adequacy to receive sedatives. - The heart rate, respiratory rate, oxygen saturations, blood pressure, adequacy of pulmonary ventilation, and response to care were monitored throughout the procedure. - The physical status of the patient was re-assessed after the procedure. After I obtained informed consent, the scope was passed under direct vision. Throughout the procedure, the patient's blood pressure, pulse, and oxygen saturations were monitored continuously. The Scope was introduced through the anus and advanced to the cecum, identified by appendiceal orifice and ileocecal valve. The colonoscopy was performed without difficulty. The patient tolerated the procedure well. The quality of the bowel preparation was adequate to identify polyps 6 mm and larger in size. Findings: The perianal and digital rectal examinations were normal. Pertinent negatives include normal sphincter tone. A 6 mm polyp was found in the transverse colon. The polyp was sessile. The polyp was removed with a cold snare. Resection and retrieval were complete. Estimated blood loss was minimal. A diffuse area of mild melanosis was found in the entire colon. Biopsies were taken with a cold forceps for histology. Estimated blood loss was minimal. A frond-like/villous and ulcerated partially obstructing large mass was found in the descending colon. The mass was partially circumferential (involving two-thirds of the lumen circumference). The mass measured three cm in length. No bleeding was present. Biopsies were taken with a cold forceps for histology. Estimated blood loss was minimal. Area was tattooed with an injection of 3 mL of Spot (carbon black). Estimated blood loss: 5 mL requiring treatment with placement of hemostatic clip(s). Estimated blood loss was minimal. The exam was otherwise without abnormality. Internal hemorrhoids were found during retroflexion. The hemorrhoids were mild. Impression: - One 6 mm polyp in the transverse colon, removed with a cold snare. Resected and retrieved. - Melanosis in the colon. Biopsied. 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 Biopsied. Tattooed. - The examination was otherwise normal. Recommendation: - Repeat colonoscopy in 1 year for surveillance. - Refer to a surgeon at appointment to be scheduled. - Await pathology results. Dai Parish D.O. Dai Parish, 05/05/2018 12:26:18 PM This report has been signed electronically. Note Initiated On: 05/05/2018 11:37 AM Number of Addenda: 0 I attest to the content of the Intraoperative Record and orders documented therein, exceptions below {[id number]}
--- NOTE | 2018-05-05 12:54 | Anesthesiology Progress Note ---
Date of Service May 05, 2018 Anesthesia Post Procedure Vital Signs Vital Signs: Temp Pulse Pulse Resp BP BP BP 05/05/18 12:39 68 18 110/63 05/05/18 12:24 36.5 C 71 18 98/48 L 05/05/18 11:18 36.9 C 74 18 132/78 05/05/18 07:29 80 05/05/18 07:13 36.8 C 81 20 131/72 05/04/18 23:41 36.6 C 79 20 139/75 05/04/18 22:36 81 05/04/18 19:26 36.7 C 77 20 145/72 H 05/04/18 15:00 36.7 C 78 138/77 05/04/18 14:30 36.7 C 74 18 137/73 05/04/18 14:00 36.6 C 70 18 135/71 05/04/18 13:31 36.7 C 73 18 128/68 Pulse Ox 05/05/18 12:39 98 05/05/18 12:24 97 05/05/18 11:18 99 05/05/18 07:29 05/05/18 07:13 97 05/04/18 23:41 98 05/04/18 22:36 05/04/18 19:26 100 05/04/18 15:00 18 L 05/04/18 14:30 100 05/04/18 14:00 99 05/04/18 13:31 99 Notes Mental Status: alert / awake / arousable and participated in evaluation Patient Amnestic to Procedure: Yes Nausea / Vomiting: adequately controlled Pain: adequately controlled Airway Patency, RR, SpO2: stable & adequate BP & HR: stable & adequate Hydration State: stable & adequate Anesthetic Complications: no major complications apparent
--- NOTE | 2018-05-05 13:29 | CT Scan Report ---
CT SCAN OF THE ABDOMEN AND PELVIS WITHOUT IV CONTRAST CLINICAL HISTORY: Descending colonic mass identified during colonoscopy. COMPARISON STUDY: Abdominal CT dated 10/18/2008. TECHNIQUE: CT scan of the abdomen and pelvis is performed from the lung bases to the proximal femora. Images are reviewed in the axial, sagittal, and coronal planes. IV contrast was not administered for this examination as per the referring clinician. Note that the examination was performed in signific antly suboptimal fashion without oral and IV contrast. The Examination is also degraded by large body habitus, with streak artifact from the body wall abutting the CT gantry. The examination is also deg raded by motion artifact. A dose lowering technique was utilized adhering to the principles of ALARA. CT DOSE: 2156.44 mGy.cm FINDINGS: Lung bases: The heart is enlarged and without pericardial effusion. Evaluation of the lung bases is d egraded by motion artifact. No airspace consolidation or pleural effusion is identified. There is dep endent atelectasis. There is a small hiatal hernia. Liver: The unenhanced liver is normal in size, contour, and attenuation. There is mild intrahepatic b iliary ductal dilatation. There is pneumobilia is seen throughout the left lobe of the liver. Gallbladder: Surgically absent. Spleen: Normal in size and attenuation. Pancreas: The unenhanced pancreas is mildly atrophic and grossly unremarkable. Adrenal glands: Unremarkable. Kidneys: The unenhanced kidneys demonstrate cortical atrophy and are without hydronephrosis. There ar e no renal calculi identified. A 3.3 cm cyst is noted in the left kidney. Abdominal vasculature: The abdominal aorta is normal in course and caliber noting moderate atheroscle rotic calcification. Bowel: Presumed surgical clips are noted in the descending colon on image #[id number]. There is no evidence of colonic mass identified by CT. No bowel obstruction is seen. Wall thickening versus underdistentio n is suggested involving the cecum and proximal ascending colon. The appendix is well-visualized and normal. Peritoneum: There is no intraperitoneal free air or abdominal ascites. There is a large fat-containin g umbilical hernia. Lymphadenopathy: None. Pelvic viscera: There is median lobe hypertrophy of the prostate. The bladder wall appears mildly thi ckened and trabeculated indicating chronic outlet obstruction. Skeletal structures: The skeletal structures are osteopenic. There is moderate lumbosacral spondylosi s. No lytic or blastic lesions are seen. IMPRESSION: 1. Significantly suboptimal examination without oral and IV contrast. The examination is also comprom ised by streak and motion artifact. 2. Surgical clips are identified in the descending colon. There is no CT evidence of left sided colon ic mass as clinically queried. 3. There is underdistention versus wall thickening suggested involving the cecum and proximal ascendi ng colon. Correlation with clinical findings and colonoscopy results will be required. 4. There is no evidence of metastatic disease in the abdomen or pelvis on this unenhanced examination . 5. Cardiomegaly. 6. There is pneumobilia, likely due to previous cholecystectomy with sphincterotomy. Clinical correla tion will be required. 7. Additional findings as above. Electronically signed by: Adrien Carlisle M.D. 05/05/2018 1:27 PM
[2018-05-05] MEDS ORDERED: PERFLUTREN LIPID MICROSPHERE (DEFINITY) IV ONE (13:59)
[2018-05-05] MEDS: IRON SUCROSE 200 MG in 0.9 % SODIUM CHLORIDE 100 ML IV SCH (18:05)
--- NOTE | 2018-05-05 19:53 | Hospitalist Progress Note ---
Date of Service May 05, 2018 Assessment & Plan (1) Acute kidney injury: - Cr slowly trending down currently at 4.74 but baseline is around 2-2.5 - Renal US negative; one simple cyst reported - UA with microscopic hematuria and high grade proteinuria; serum free light chains pending - Nephrology following - appreciate assistance - ongoing discussion of dialysis consideration and family is to continue to discuss as cost is a big concern (2) Chronic kidney disease, stage IV (severe): - Related to underlying DM and HTN - Renally dose all meds (3) Metabolic acidosis: - Remains with an anion gap of 12 and will continue to monitor with daily labs - Continue sodium bicarb 650 mg BID. (4) Urinary tract infection: - UC positive for E. coli. - Continue Keflex for coverage per sensitivities. (5) GI bleed: - Presented with significant anemia at outpt appt, hgb ~5.8 - Only have current labs to compare and staying relatively low - currently at 8.4 - Had transfusion of PRBCs during admission; FOBT positive - Protonix IV BID - GI following - completed EGD/Colonoscopy today Present on Admission?: Yes (6) Anemia of chronic disease: - Iron studies are consistent with anemia of chronic disease; pt. likely has acute anemia related to GI bleed as well and likely in the setting of a malignant mass - Colonoscopy with a mass in the descending colon with pathology pending - Continue to monitor H&H - transfuse for Hgb < 8 - Venofer 200 mg IV daily for 5 day course Present on Admission?: Yes (7) Scrotal lesion: - Large ulcer noted in scrotal area; pt. reports area bleeds at times. - Wound care consulted Present on Admission?: Yes (8) Diabetes mellitus, type II: - Continue Lantus 8 units BID with SSI coverage. - Hemoglobin A1C was 7.8 during this admission. Present on Admission?: Yes (9) Hypertension: - Pt. was not taking Coreg at home; has been hypertensive. - Restarted Coreg 12.5 mg PO BID and since BPs have been stable Present on Admission?: Yes (10) History of seizures: - Not currently on medication. Present on Admission?: Yes (11) DVT prophylaxis: - SCDs; hold Heparin in setting of acute bleed/planned procedure. Dispo: Gen Surg consultation and await improvement in renal function Subjective Verbalizes no complaints today. Eager to get home. Updated multiple family members at bedside on multiple occasions. Was found to have a descending colon mass that is partially obstructing. Hgb did trend down slightly from yesterday and will recheck in AM Cr is slowly improving but still well above baseline Constitutional: no fever and no chills Respiratory: no cough and no dyspnea Cardiovascular: no chest pain and no palpitations Gastrointestinal: no abdominal pain, no nausea, no vomiting, no constipation, no diarrhea/loose stools, no blood in stools and no melena Genitourinary (Male): no dysuria Musculoskeletal: no body aches Integumentary: no rash Physical Exam 2 Vital Signs (Past 24 Hours): Last Vital Signs Temp 37.1 C 05/05/18 19:09 Pulse 80 05/05/18 19:09 Resp 20 05/05/18 19:09 BP 125/70 05/05/18 19:09 Pulse Ox 98 05/05/18 19:09 Constitutional: well developed and well nourished; no acute distress and not ill appearing Eyes: + anicteric sclerae Neck: trachea midline Respiratory: normal respiratory effort, lungs clear to auscultation Cardiovascular: Rate/Rhythm: regular rate and regular rhythm Gastrointestinal (Abdomen): Inspection/Auscultation: normal bowel sounds Percussion/Palpation: abdomen soft; abdomen nontender Musculoskeletal: Head/Neck/Chest: normocephalic, head atraumatic and neck supple Skin: no rashes, warm and dry Neurologic: moves all extremities Psychiatric: A+Ox3, euthymic affect
[2018-05-06 07:01] LABS: Hematocrit (blood only) 26.2 % (42-52); Hemoglobin 8.5 g/dL (14.0-18.0); Mean Corpuscular Hgb Conc 32.4 g/dL (32-36); Mean Corpuscular Volume 87.6 fL (80-100); Mean Platelet Volume 9.6 fL (7.4-10.4); Platelet Count 196 K/uL (130-400); RDW Coefficient of Variation 17.3 % (11.5-14.5); RDW Standard Deviation 55.3 fL (36.4-46.3); Red Blood Count 2.99 M/uL (4.7-6.1); White Blood Count 6.82 K/uL (4.8-10.8)
[2018-05-06 07:48] LABS: BUN Creatinine Ratio 12.7 (10-20); Calcium 7.8 mg/dl (8.5-10.1); Creatinine Clr Calc Pharmacy 20.4 ml/min; Est GFR (African American) 13.4; Est GFR (Non-African American) 11.6; Potassium 3.8 mmol/L (3.5-5.1)
[2018-05-06] MEDS: MAGNESIUM OXIDE 400 MG TAB PO SCH (08:37)
[2018-05-06] MEDS: SODIUM BICARBONATE 650 MG TAB PO SCH (08:37)
[2018-05-06] MEDS: CARVEDILOL 12.5 MG TAB PO SCH (08:38)
[2018-05-06] MEDS: cephALEXin 500 MG CAP PO SCH (08:38)
[2018-05-06] MEDS: INSULIN GLARGINE SOLOSTAR 100 UNITS/ML 3 ML PEN SC SCH (08:39)
[2018-05-06] MEDS: INSULIN ASPART 100 UNITS/ML 3 ML PEN SC SCH ×2 (08:40→13:12)
[2018-05-06] MEDS ORDERED: SODIUM BICARBONATE 650 MG TAB PO ONE (09:00)
[2018-05-06] MEDS: PANTOprazole 40 MG in SYRINGE 0 ML IV SCH (09:00)
--- NOTE | 2018-05-06 09:03 | Gastroenterology Progress Note ---
Date of Service May 06, 2018 Assessment & Plan (1) Anemia: 72 year old male w/ CKD, chronic anemia w/ + FOBT prepped for EGD/Colon today w/o any acute evidence of GIB. EGD negative, colonoscopy w/ likely malignant mass in the descending colon - noncontrast CT negative for mets. - Follow labs - Follow up pathology - Will need OP surgical evaluation at tertiary care center GI to sign off. Thank you for allowing us to participate in the care of this patient. Please call with any acute changes, questions or concerns. Please see addendum below with additional recommendation from my supervising physician. (2) Positive occult stool blood test: Supervising Physician Co-Signing Physician Notes I saw and evaluated the patient. He does have a left colonic mass which we biopsied yesterday. The appearance is somewhat suggestive of an advanced polyp or perhaps early malignancy. Given the size of the lesion I think his best option is surgical intervention. Unfortunately the patient is morbidly obese and has renal failure. I did discuss the case with Dr. Brown who felt the patient would be best served at a tertiary [facility]. The patient is not certain if he wants to pursue this at the present time. Subjective Pt was seen and evaluated, chart reviewed. Colonoscopy w/ a malignany appearing mass in the descening colon. Noncon CT w/o evidence of mets. No complaints this AM. No abd pain. No nausea, vomiting. Wants to go home. No fever, chills, CP, SOB. Colon: One 6 mm polyp in the transverse colon, removed with a cold snare. Resected and retrieved. Melanosis in the colon. Biopsied. 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 Biopsied. Tattooed. The examination was otherwise normal. EGD: Normal esophagus. Z-line regular, 37 cm from the incisors. Gastritis. Biopsie Normal examined duodenum Physical Exam 2 Vital Signs (Past 24 Hours): Last Vital Signs Temp 36.7 C 05/06/18 07:28 Pulse 72 05/06/18 07:28 Resp 17 05/06/18 07:28 BP 142/70 H 05/06/18 07:28 Pulse Ox 98 05/06/18 07:28 Constitutional: well nourished, cooperative and comfortable; no acute distress Respiratory: normal respiratory effort, lungs clear to auscultation Cardiovascular: RRR, no murmur, no edema Gastrointestinal (Abdomen): normal bowel sounds, soft, nontender, no hepatosplenomegaly Skin: no rashes, warm and dry Results & Data Laboratory Results 05/06/18 05/06/18 05/06/18 Range/Units 07:23 06:40 06:40 WBC 6.82 (4.8-10.8) K/uL RBC 2.99 L (4.7-6.1) M/uL Hgb 8.5 L (14.0-18.0) g/dL Hct 26.2 L (42-52) % MCV 87.6 (80-100) fL MCH 28.4 (25-34) pg MCHC 32.4 (32-36) g/dL RDW Std Deviation 55.3 H (36.4-46.3) fL RDW Coeff of Bart 17.3 H (11.5-14.5) % Plt Count 196 (130-400) K/uL MPV 9.6 (7.4-10.4) fL Peripher Smr Path Cons Sodium 140 (136-145) mmol/L Potassium 3.8 (3.5-5.1) mmol/L Chloride 113 H (98-107) mmol/L Carbon Dioxide 15 L (21-32) mmol/L Anion Gap 12.0 H (3-11) BUN 60 H (7-18) mg/dl Creatinine 4.73 H* (0.6-1.4) mg/dl Est Cr Clr Drug Dosing 20.4 ml/min Est GFR ( Amer) 13.4 Est GFR (Non-Af Amer) 11.6 BUN/Creatinine Ratio 12.7 (10-20) Glucose 89 (70-99) mg/dl POC Glucose 101 H (70-99) Calcium 7.8 L (8.5-10.1) mg/dl 05/05/18 05/05/18 05/05/18 Range/Units 20:09 15:40 14:08 WBC (4.8-10.8) K/uL RBC (4.7-6.1) M/uL Hgb (14.0-18.0) g/dL Hct (42-52) % MCV (80-100) fL MCH (25-34) pg MCHC (32-36) g/dL RDW Std Deviation (36.4-46.3) fL RDW Coeff of Bart (11.5-14.5) % Plt Count (130-400) K/uL MPV (7.4-10.4) fL Peripher Smr Path Cons Sodium (136-145) mmol/L Potassium (3.5-5.1) mmol/L Chloride (98-107) mmol/L Carbon Dioxide (21-32) mmol/L Anion Gap (3-11) BUN (7-18) mg/dl Creatinine (0.6-1.4) mg/dl Est Cr Clr Drug Dosing ml/min Est GFR ( Amer) Est GFR (Non-Af Amer) BUN/Creatinine Ratio (10-20) Glucose (70-99) mg/dl POC Glucose 127 H 118 H 121 H (70-99) Calcium (8.5-10.1) mg/dl 05/02/18 Range/Units 18:24 WBC (4.8-10.8) K/uL RBC (4.7-6.1) M/uL Hgb (14.0-18.0) g/dL Hct (42-52) % MCV (80-100) fL MCH (25-34) pg MCHC (32-36) g/dL RDW Std Deviation (36.4-46.3) fL RDW Coeff of Bart (11.5-14.5) % Plt Count (130-400) K/uL MPV (7.4-10.4) fL Peripher Smr Path Cons Sodium (136-145) mmol/L Potassium (3.5-5.1) mmol/L Chloride (98-107) mmol/L Carbon Dioxide (21-32) mmol/L Anion Gap (3-11) BUN (7-18) mg/dl Creatinine (0.6-1.4) mg/dl Est Cr Clr Drug Dosing ml/min Est GFR ( Amer) Est GFR (Non-Af Amer) BUN/Creatinine Ratio (10-20) Glucose (70-99) mg/dl POC Glucose (70-99) Calcium (8.5-10.1) mg/dl
--- NOTE | 2018-05-06 10:45 | Nephrology Progress Note ---
Date of Service May 06, 2018 Assessment & Plan (1) CKD (chronic kidney disease): 72-year-old gentlemen with history of hypertension, chronic kidney disease admitted with acute kidney injury and anemia. Received 3 units of blood transfusion however hemoglobin has been dropping in between transfusion. FOBT was positive. Baseline creatinine was around 2.2-2.5. Found to have acute kidney injury with creatinine around 4.8-5 over last 3 weeks. Over last few days creatinine remained stable suggesting probably underlying progressive worsening of renal function since lab in June 2017 and this is probably his baseline for quite some time. Renal ultrasound was negative. Urinalysis showed 2+ proteinuria. Paraproteinemia workup currently pending. Found to have UTI with E coli currently on cephalexin. EGD and Colonoscopy was done on 05/05/2018 showing large colonic mass causing partial obstruction, biopsy pending. Echo showed EF 45-50%, LVH, no critical valvular abnormality. --increase sodium bicarbonate to 1300 mg twice a day -- renal function stable, no acute indication for dialysis, patient leaning towards not considering dialysis as he will have to pay [id number] --continue on IV Venofer therapy --Epogen 13071 unit x 1 dose given on 05/05/17 --consider palliative care consult for goals of care in light of possible colon cancer and end-stage renal disease. Will follow (2) Anemia: (3) H/O CHF: Soheila Elias was seen & examined in his hospital room this morning. He currently denies angina, abdominal pain or uremic symptoms. Hemoglobin stable at 8.5, renal function stable. Blood pressure well controlled. Physical Exam 2 Vital Signs (Past 24 Hours): Last Vital Signs Temp 36.7 C 05/06/18 07:28 Pulse 72 05/06/18 07:28 Resp 17 05/06/18 07:28 BP 142/70 H 05/06/18 07:28 Pulse Ox 98 05/06/18 07:28 Constitutional: WD/WN, vitals as above Respiratory: normal respiratory effort, lungs clear to auscultation Cardiovascular: RRR, no murmur, no edema Neurologic: moves all extremities and awake Psychiatric: Orientation: alert and oriented x 3
[2018-05-06 12:25] LABS: Free Kappa 128.9 MG/L (3.3-19.4); Free Kappa/Lambda Ratio 1.13 (0.26-1.65)
--- NOTE | 2018-05-06 12:26 | Surgery Consultation ---
Date of Consultation May 06, 2018 Assessment & Plan (1) Anemia of chronic disease: colon mass, path pending would consider resection, probably as an outpatient will discuss dialysis options with nephrology he also wants to discuss it further with his family History of Present Illness Attending Physician: Curtis Medrano DO History of Present Illness 72 y/o male c/o weakness, has been anemic and recently began seeing nephrology for CKD/BEBE. Had colonoscopy yesterday and found to have descending colon mass, pathology pending. No changes in bowel habits, constipation or bleeding/melena he is aware of. Allergies Allergy/AdvReac Type Severity Reaction Status Date / Time No Known Allergies Allergy Unverified 05/02/18 21:23 Home Medications Home Medications Medication Instructions Recorded Confirmed Type Phenytoin Sodium (Dilantin Unknown BID #0 10/18/08 History Dose) Sulfa/Trimethoprim (Bactrim Ds 1 tab PO BID 14 Days #0 10/18/08 Rx 800MG/160MG) Tamsulosin Hcl (Flomax *) 0.4 mg PO DAILY 14 Days #0 10/18/08 Rx Patient History Medical History CHF (congestive heart failure) CKD (chronic kidney disease) Diabetes Hypertension Seizures Surgical History S/P cataract extraction Family History Other Diabetes Stroke Social History marital status: Current Living Situation: Family Other Information That Helps Us Care for You: No Feels Safe at Home: Yes Safety Concerns: Feels Safe At This Time Smoking Status: Former smoker Do You Dip or Chew Tobacco: No Hx Alcohol Use: No Hx Substance Use: No Beliefs That Will Affect Care: None Preferred Language: Armenian Communication Ability: Effective Relationship Counselor Required: No Review of Systems Constitutional: + weakness Gastrointestinal: no abdominal pain, no nausea, no vomiting, no change in bowel habits, no constipation, no diarrhea/loose stools, no blood in stools and no melena Physical Exam 2 Vital Signs (Past 24 Hours): Last Vital Signs Temp 36.5 C 05/06/18 11:53 Pulse 72 05/06/18 11:53 Resp 20 05/06/18 11:53 BP 137/75 05/06/18 11:53 Pulse Ox 99 05/06/18 11:53 Constitutional: WD/WN, vitals as above Respiratory: normal respiratory effort, lungs clear to auscultation Cardiovascular: RRR, no murmur, no edema Gastrointestinal (Abdomen): normal bowel sounds, soft, nontender, no hepatosplenomegaly
--- NOTE | 2018-05-06 15:45 | Palliative Care Consultation ---
Date of Consultation May 06, 2018 Assessment & Plan (1) Palliative care encounter: Patient is a 72-year-old [employer] gentleman with a past medical history significant for hypertension, diabetes, chronic kidney disease, anemia, CHF and BPH who presented from the nephrology office with abnormal lab work. Patient's baseline creatinine had been 2.2-2.5-prior to admission had risen to 5, his hemoglobin had been 9.9 and had dropped to 5.8. Patient Was transfused. Patient was also found to have UTI. Workup for his worsening renal failure as well as anemia revealed heme positive stools-colonoscopy showed a mass which was biopsied-pathology pending. Patient had a renal ultrasound which showed some cortical atrophy-a 3 cm left upper pole renal cyst was seen, no hydronephrosis or obstruction. Met with patient and his cce-hn-[id number]-discussed medical decision making regarding dialysis and further treatment for the: Mass-patient repeatedly stated he needed to speak with his family to make decisions. After my initial visit I was called back to the room when other family members arrived-there were patient's , 3 sons, 3 daughters in law, one sister-in- law and 2 daughters. Reviewed again with the Family the decisions they need to make regarding further treatment for his kidney failure i.e. dialysis, if they decide against dialysis would recommend hospice care at home. Also discussed further treatment for the colon mass if biopsy returns malignant-patient would be offered surgery as well as chemo at that point. Both patient and family requested that he be able to return home to further weigh his options. Discussed how to make a hospice referral-family can contact a hospice of their choice if they wish any further medical records can be obtained from his primary care physician, his gas plant technician, or myself. Family was given business cards with information on how to contact me if needed. Notified attending physician as well as case management regarding patient and family's wishes to return home as soon as possible. - Chronic kidney disease-patient's creatinine today was 4.73-patient and family to make a decision regarding dialysis - Colon mass-patient and family make decisions regarding further care including surgery and chemo if needed - Anemia-Patient received IV iron. Patient can follow up with PCP for transfusions as needed, or elect comfort care with hospice - UTI-Patient now on p.o. cephalexin - CHF-EF 45-50%. Patient would likely require dialysis for further fluid removal due to end-stage renal disease - Diabetes-patient is diet controlled at home Both patient and family voiced understanding of the decisions that needed to be made and felt they had all the information they needed to go home and discuss patient's further care. (2) Chronic kidney disease, stage IV (severe): Patient and family to discuss whether or not to pursue dialysis (3) GI bleed: Colon mass found on colonoscopy-biopsy results pending (4) Anemia of chronic disease: Transfuse as needed (5) Urinary tract infection: Currently on p.o. cephalexin (6) H/O CHF: Chronic lower extremity edema-stable History of Present Illness Reason for Consultation: Address goals of care, assist with medical decision making Requesting Physician: Dr. Curtis Medrano Attending Physician: Curtis Medrano, DO History of Present Illness Patient is a 72-year-old [employer] gentleman with a past medical history significant for hypertension, diabetes, chronic kidney disease, anemia, CHF and BPH who presented from the nephrology office with abnormal lab work. Patient's baseline creatinine had been 2.2-2.5-prior to admission had risen to 5, his hemoglobin had been 9.9 and had dropped to 5.8. Patient Was transfused. Patient was also found to have UTI. Workup for his worsening renal failure as well as anemia revealed heme positive stools-colonoscopy showed a mass which was biopsied-pathology pending. Patient had a renal ultrasound which showed some cortical atrophy-a 3 cm left upper pole renal cyst was seen, no hydronephrosis or obstruction. Met with patient and his [id number]-discussed medical decision making regarding dialysis and further treatment for the: Mass-patient repeatedly stated he needed to speak with his family to make decisions. After my initial visit I was called back to the room when other family members arrived-there were patient's , 3 sons, 3 daughters in law, one sister-in- law and 2 daughters. Reviewed again with the Family the decisions they need to make regarding further treatment for his kidney failure i.e. dialysis, if they decide against dialysis would recommend hospice care at home. Also discussed further treatment for the colon mass if biopsy returns malignant-patient would be offered surgery as well as chemo at that point. Both patient and family requested that he be able to return home to further weigh his options. Discussed how to make a hospice referral-family can contact a hospice of their choice if they wish any further medical records can be obtained from his primary care physician, his gas plant technician, or myself. Family was given business cards with information on how to contact me if needed. Notified attending physician as well as case management regarding patient and family's wishes to return home as soon as possible. Both patient and family voiced understanding of the decisions that needed to be made and felt they had all the information they needed to go home and discuss patient's further care. Patient is a member the [employer]. Patient has 8 children, is lives at home with his , all 8 children are , he did have one [id number] who has . Allergies Allergy/AdvReac Type Severity Reaction Status Date / Time No Known Allergies Allergy Unverified 05/02/18 21:23 Home Medications Home Medications Medication Instructions Recorded Confirmed Type Phenytoin Sodium (Dilantin Unknown BID #0 10/18/08 History Dose) Tamsulosin Hcl (Flomax *) 0.4 mg PO DAILY 14 Days #0 10/18/08 Rx carvedilol 12.5 mg PO BID 30 Days #60 tab 05/06/18 Rx cephalexin 500 mg PO DAILY #3 cap 05/06/18 Rx docusate sodium 100 mg PO BID 30 Days #60 cap 05/06/18 Rx ferrous sulfate 325 mg PO BID #60 tab 05/06/18 Rx sodium bicarbonate 1,300 mg PO BID 30 Days #120 tab 05/06/18 Rx Patient History Medical History CHF (congestive heart failure) CKD (chronic kidney disease) Diabetes Hypertension Seizures Surgical History S/P cataract extraction Family History Other Diabetes Stroke Social History marital status: Current Living Situation: Family Other Information That Helps Us Care for You: No Feels Safe at Home: Yes Safety Concerns: Feels Safe At This Time Smoking Status: Former smoker Do You Dip or Chew Tobacco: No Hx Alcohol Use: No Hx Substance Use: No Beliefs That Will Affect Care: None Preferred Language: Jordanian Review of Systems Constitutional: no problem reported Eyes: no problem reported Ear, Nose, Mouth, Throat: no problem reported Respiratory: no problem reported Cardiovascular: + edema Gastrointestinal: + blood in stools Genitourinary (Male): + decreased urination Musculoskeletal: no problem reported Integumentary: no problem reported Neurologic: no confusion and no problem reported Psychiatric: no problem reported Diabetes-diet controlled Anemia Physical Exam 2 Vital Signs (Past 24 Hours): Last Vital Signs Temp 36.5 C 05/06/18 15:25 Pulse 70 05/06/18 15:25 Resp 20 05/06/18 15:25 BP 142/70 H 05/06/18 15:25 Pulse Ox 99 05/06/18 15:25 Constitutional: NAD Eyes: EOMI ENMT: Normal hearing Respiratory: No rhonchi, respirations unlabored Cardiovascular: Regular rate, 3+ edema lower extremities Gastrointestinal (Abdomen): Soft, nontender Skin: No pallor Neurologic: Alert and oriented Psychiatric: Appropriate behavior Time Spent Attending Total time spent 70 minutes with greater than 50% of the time spent at bedside discussing treatment options, benefit versus burden of each option, and goals of care.
--- NOTE | 2018-05-06 18:19 | Discharge Summary ---
Date of Service May 06, 2018 Admission HPI Per Admitting Provider Mr. Delaney is a pleasant 72yo male who was sent for direct admission by Nephrology for laboratory abnormalities. 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 He was evaluated in the Nephrology clinic today. His baseline Cr has been 2.2 - 2.5 and was found to be 5 today. Baseline Hg of 9.9 which was found to be 5.8 today. The patient was ordered 2u PRBCs by his PCP, however, patient did not complete transfusion. He was sent for direct admission to [facility]. Overall, patient with no complaints. He denies fevers, chills, nausea, vomiing , diarrhea or constipation. He denies CP, palpitations, dizziness or syncope. Denies melena, hematochezia or hematuria. He states that his BMs and UOP are normal. He has had progressive BELCHER over thee past 2 months. Principal Diagnosis Acute kidney injury on chronic kidney disease; descending colon mass with anemia Discharge Exam Constitutional well developed and well nourished; no acute distress and not ill appearing Eyes + anicteric sclerae Neck trachea midline Respiratory normal respiratory effort, lungs clear to auscultation Cardiovascular Rate/Rhythm: regular rate and regular rhythm Gastrointestinal (Abdomen) Inspection/Auscultation: normal bowel sounds Percussion/Palpation: abdomen soft; abdomen nontender Musculoskeletal Head/Neck/Chest: normocephalic, head atraumatic and neck supple Skin no rashes, warm and dry Neurologic moves all extremities Psychiatric A+Ox3, euthymic affect Discharge Data Allergies Allergy/AdvReac Type Severity Reaction Status Date / Time No Known Allergies Allergy Unverified 05/02/18 21:23 Consultations 05/02/18 18:09 Consult Nephrology Routine 05/04/18 08:59 Consult Gastroenterology Routine 05/05/18 18:41 Consult General Surgery Routine 05/06/18 10:35 Consult Palliative Care Routine Procedures Performed Operation Date: 05/05/18 11:45 Actual Procedures s EGD Biopsy Cytology - Dai Parish p Colonoscopy Polypectomy - Dai Parish s Colonoscopy Hemostasis - Dai Parish s Injection Therapy / Sclerotherapy - Dai Parish Ordered Studies CT SCAN OF THE ABDOMEN AND PELVIS WITHOUT IV CONTRAST FINDINGS: Lung bases: The heart is enlarged and without pericardial effusion. Evaluation of the lung bases is degraded by motion artifact. No airspace consolidation or pleural effusion is identified. There is dependent atelectasis. There is a small hiatal hernia. Liver: The unenhanced liver is normal in size, contour, and attenuation. There is mild intrahepatic biliary ductal dilatation. There is pneumobilia is seen throughout the left lobe of the liver. Gallbladder: Surgically absent. Spleen: Normal in size and attenuation. Pancreas: The unenhanced pancreas is mildly atrophic and grossly unremarkable. Adrenal glands: Unremarkable. Kidneys: The unenhanced kidneys demonstrate cortical atrophy and are without hydronephrosis. There are no renal calculi identified. A 3.3 cm cyst is noted in the left kidney. Abdominal vasculature: The abdominal aorta is normal in course and caliber noting moderate atherosclerotic calcification. Bowel: Presumed surgical clips are noted in the descending colon on image #[id number]. There is no evidence of colonic mass identified by CT. No bowel obstruction is seen. Wall thickening versus underdistention is suggested involving the cecum and proximal ascending colon. The appendix is well-visualized and normal. Peritoneum: There is no intraperitoneal free air or abdominal ascites. There is a large fat-containing umbilical hernia. Lymphadenopathy: None. Pelvic viscera: There is median lobe hypertrophy of the prostate. The bladder wall appears mildly thickened and trabeculated indicating chronic outlet obstruction. Skeletal structures: The skeletal structures are osteopenic. There is moderate lumbosacral spondylosis. No lytic or blastic lesions are seen. IMPRESSION: 1. Significantly suboptimal examination without oral and IV contrast. The examination is also compromised by streak and motion artifact. 2. Surgical clips are identified in the descending colon. There is no CT evidence of left sided colonic mass as clinically queried. 3. There is underdistention versus wall thickening suggested involving the cecum and proximal ascending colon. Correlation with clinical findings and colonoscopy results will be required. 4. There is no evidence of metastatic disease in the abdomen or pelvis on this unenhanced examination. 5. Cardiomegaly. 6. There is pneumobilia, likely due to previous cholecystectomy with sphincterotomy. Clinical correlation will be required. 7. Additional findings as above. Hospital Course (1) Acute kidney injury: - Cr slowly trending down currently at 4.74 but baseline is around 2-2.5 initially -there is concerned that this may be his new baseline and ultimately the treatment would be dialysis - Renal US negative; one simple cyst reported - UA with microscopic hematuria and high grade proteinuria; serum free light chains pending - Nephrology following - appreciate assistance - ongoing discussion of dialysis consideration and family is to continue to discuss as cost is a big concern - plan to discuss as a family and community on whether to pursue dialysis and would like to do this in the comfort of his home and community (2) Chronic kidney disease, stage IV (severe): - Related to underlying DM and HTN - Renally dose all meds (3) Metabolic acidosis: - Remains with an anion gap of 12 -Electrolytes are stable at this time and no need for emergent dialysis however it is uncertain how long renal function and metabolic panel will remain stable without dialysis - Continue sodium bicarb 1300 mg BID. (4) Urinary tract infection: - UC positive for E. coli. 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 Did discuss that decision may need to be made in the coming days to prevent any adverse effects versus possible involvement with hospice services -Provided Rx for Colace 100 mg twice daily to help keep stools soft and easy to pass given the partially obstructing mass -of course in the future bowel obstruction will be of concern if surgical intervention is not completed (6) Anemia of chronic disease: - Iron studies are consistent with anemia of chronic disease; pt. likely has acute anemia related to GI bleed as well and likely in the setting of a malignant mass - Colonoscopy with a mass in the descending colon with pathology pending -Given Venofer IV during hospital stay but due to wanting to return home will continue with ferrous sulfate 325 mg twice daily (7) Scrotal lesion: - Large ulcer noted in scrotal area; pt. reports area bleeds at times. (8) Diabetes mellitus, type II: - Normally diet managed at home - Hemoglobin A1C was 7.8 during this admission. (9) Hypertension: - Pt. was not taking Coreg at home; has been hypertensive. - Restarted Coreg 12.5 mg PO BID and since BPs have been stable -provided Rx (10) History of seizures: - Not currently on medication. (11) DVT prophylaxis: Dispo: Family provided an additional number to reach the patient's family and passed along a message -[phone] at extension [phone] -this is a son-in-law' s work number is patient is Darryl Total Time Total Time Spent Total Time Spent (In Minutes): Greater than 30 minutes Discharge Plan Discharge Items Patient Disposition: Home - Self-Care Reason For Visit: BEBE ON CKD,ANEMIA Discharge Diagnosis: Worsening Kidney Disease and Low Blood Counts (Mass in Colon) Discharge Goals: Decrease discomfort, Increase independence and Prevent disease Activity: Resume your previous activity Non-emergency contact: Primary Care Provider Call non-emergency contact if: you have any medication questions, your symptoms worsen and you have a fever Follow-up/Referrals: Dr. Pasquale Healy [Other] - 05/14/18 2:55 pm (Please, follow up at [facility] in [place] with Dr. Pasquale Healy on SaturdayMay 14 at 2:55 pm. *THIS OFFICE IS LOCATED AT [address] [place] [address] [address] [place]* *If you need to change this appointment, call the office at [phone].) Diet: Dialysis Renal Addtl Provider Instructions: Worsening Creatinine (Kidney Numbers) - Your kidney numbers on labs are worsening and are nearing the point of possibly needing dialysis to help pull extra fluid and toxins from the body as the kidneys will not do this as well on their own - Your electrolytes (potassium, sodium,...) look good. - Your normal kidney number is around 2-2.5 but now your number is staying around 4.7 - At this time it will be important to discuss with your family and your community about possibly starting dialysis or you can decide to not do this at all. - Will send a prescription home called sodium bicarbonate which can help keep some of your labs at a good place but is not an overall fix for the kidney Urinary Tract Infection: - You were found to have some bacteria in your urine as well. Will finish a course of Keflex 500 mg daily. You had a dose today on 2/5 and will need to start this on 05/07 for 3 more days Low Hemoglobin: - When you first came to the hospital your blood counts or hemoglobin was low. You needed some blood products to get your numbers higher. Right now you are 8.5 which is higher than you started. We do not have a lot of labs to compare to , to know what your normal is. The goal is to see this number go higher. - The hemoglobin is responsible for carries oxygen through the blood to your body parts and that is why we like to see this number higher. - Having kidney disease can cause this number to be low as well due to the kidneys needing to make what is called erythropoeitin that generates blood cells. - You were found to have a mass in the descending colon which is the colon ( bowel) that runs down the left side of your abdomen. The biopsy is pending but there is concern that this is cancer. - Masses in the colon can cause little amounts of blood to be lost in your stool or feces that can bring your blood counts down. - This mass can be removed but will require a surgery and will need to make sure the kidneys can do well and may need dialysis to go forward with surgery - In the meantime, the goal is to prevent having constipation or difficulty moving your bowels. Will give a prescription for Colace or Docusate Sodium which is a stool softener to help prevent getting hard stool in the colon. - Will also send you with a prescription for iron supplements to help build up your blood cells. This can cause constipation so it will help to take the stool softener as well. - Will give you a prescription to check your blood work in 3-4 days. This can be done at any place you normally get blood work down and can be sent to your family doctor. High Blood Pressure: - Our records showed you were on Coreg which is a blood pressure medication. Can give you a prescription for this as well but please talk with your family doctor if you no longer take this medication. Please take this with your to your next family doctor appointment Prescriptions: New carvedilol 12.5 mg Tablet 12.5 mg PO BID 30 Days Qty: 60 RF: 0 cephalexin 500 mg Capsule 500 mg PO DAILY Qty: 3 RF: 0 sodium bicarbonate 650 mg Tablet 1,300 mg PO BID 30 Days Qty: 120 RF: 0 docusate sodium 100 mg capsule 100 mg PO BID 30 Days Qty: 60 RF: 0 ferrous sulfate 325 mg (65 mg iron) tablet 325 mg PO BID Qty: 60 RF: 0 Continue Phenytoin Sodium (Dilantin Unknown Dose) EXT REL CAP BID Qty: 0 RF: 0 Tamsulosin Hcl (Flomax *) 0.4 MG capsule 0.4 mg PO DAILY 14 Days Qty: 0 RF: 0 Discontinued Sulfa/Trimethoprim (Bactrim Ds 800MG/160MG) tablet 1 tab PO BID 14 Days Qty: 0 RF: 0 Stand-Alone Forms: [facility] Discharge Orders: Discharge Order (Routine); Ordered 05/06/18 Ordered By: Rosie Paul Admission Data Admit Date/Time: 05/02/18 17:02 Attending Provider: Curtis Medrano Admit Provider: María Frank Primary Care Provider: Pasquale Healy I. Other Providers: Curt Prieto ; Elroy Carter ; Lashonda Roberts ; Amparo Francis ; Abrahan Juan ; Mattie Robles ; Rodrigue Contreras ; Lisa Barrientos Service: Telemetry Other Interventions: Discharge Summary Assessment (RN) Last Done: 05/06/18 15:25 DC Date/Time DO NOT enter until pt leaves facility: 05/06/18 16:10
[2018-05-06] MEDS ORDERED: SODIUM BICARBONATE 650 MG TAB PO SCH (21:00)
== END 2018-05-06 16:10 | disposition home or self-care (01) | DRG 683 ==
LOC: SUATTDRO 17:02 → 2W 17:02
DX: N18.4 Chronic kidney disease, stage 4 (severe); I13.0 Hypertensive heart and chronic kidney disease with heart failure and stage 1 through stage 4 chronic kidney disease, or unspecified chronic kidney disease; E87.2 Acidosis; Z79.4 Long term (current) use of insulin; Z51.5 Encounter for palliative care; G40.909 Epilepsy, unspecified, not intractable, without status epilepticus; I50.9 Heart failure, unspecified; N17.9 Acute kidney failure, unspecified; D63.8 Anemia in other chronic diseases classified elsewhere; D64.9 Anemia, unspecified; K92.2 Gastrointestinal hemorrhage, unspecified; N39.0 Urinary tract infection, site not specified